=== PATIENT | male | born 1935 | race Caucasian/White ===

== ENCOUNTER → 2017-08-02 | Outpatient (CLI) | payer MEDICARE, OTHER ==
[~2017-08-02] MED LIST: ASCO-182 PO; ASCO-201 PO; ASP325 PO; CALC-797 PO; CHOL500016 PO; CIP500 PO; CYA1000 PO; CYAN50002 PO; DESO59LO TP; DESO60CR TP; FOL1 PO; GARL1TAB9 PO; GINK60TA6 PO; GLUC-139 PO; GLUC-234 PO; HYDR-385 PO; LISI5TAB25 PO; OMEG-11 PO; PNEU0.5D3 IM; SALM1CAP3 PO; SAW1CAPS3 PO; SAW1CAPS6 PO; SIM10 PO; SIMV-49 PO; SODCTAB PO; UBID400C2 PO; VIT-22 PO; VITA-200 PO; VITE400 PO; [UNRECOGNIZED DRUG - CODE] PO
--- NOTE | 2017-08-02 17:21 | RADIOLOGY IMAGING REPORT ---
FACILITY: [facility] [place] PATIENT NAME: Miguel Ángel Beckett : 1935 MR: [id number] V: [id number] EXAM DATE: ORDERING PHYSICIAN: BIANCA MOCK TECHNOLOGIST: Location: [facility] Patient: Miguel Ángel Beckett : 1935 Visit/Account:[id number] Date of Sevice: 08/02/2017 CHEST PA AND LAT HISTORY: Dyspnea. COMPARISON: 10/19/2013 FINDINGS: Frontal and lateral views chest obtained. Lines/tubes: None. Lungs/pleura: Normally inflated and clear. No evidence of congestive failure. No evidence of pneumot horax or effusion. Cardiomediastinum and aly: Atherosclerotic calcifications aortic arch. Sequela of transcatheter aort ic valve replacement. Bones/soft tissues: Lumbar fusion hardware, incompletely visualized. Mild T12 vertebral body compress ion fracture, unchanged. Mild pectus excavatum deformity. Additional findings: None. IMPRESSION: Chronic findings without evidence of an acute intrathoracic process or other significant interval demar nge. Report Dictated By: Damion Sahu MD at 08/02/2017 5:14 PM Report E-Signed By: Daimon Sahu MD at 08/02/2017 5:17 PM WSN:[id number]
--- NOTE | 2017-08-05 09:33 | RADIOLOGY IMAGING REPORT ---
FACILITY: [facility] PATIENT NAME: Miguel Ángel MAY : [id number] MR: [id number] V: [id number] EXAM DATE: ORDERING PHYSICIAN: BIANCA MOCK TECHNOLOGIST: Shanique Harmon EXAMINATION:TWO-DIMENSIONAL ECHOCARDIOGRAPH REASON:AORTIC VALVE REPLACEMENT WITH BOVINE VALVE 2016 2D Measurements (normal values in centimeters) LV endLV endRV endVent.LV PostAorticLeftPercent DiastolicSystolicDiastolicSeptumWallRootAtriumShortening (3.5-5.7)(0.9-2.6)(0.6-1.1)(0.6-1.1)(2.0-3.7)(1.9-4.0)(25-35%) [id number]% STROKE VOLUME: 44ml ESTIMATED EJECTION FRACTION:63% PARASTERNAL LONG AXIS: Overall left ventricular systolic function does appear to be normal. Right ventricle appears to be mildly enlarged. Other chamber sizes appear to be normal. Mild left ventricular thickening more along the posterior wall but no evidence for any outflow tract obstruction. Prosthetic aortic valve was in place. PARASTERNAL SHORT AXIS: Overall left ventricular function again appears to be normal. No specific wall motion abnormalities are noted. Aortic valve is a bioprosthetic valve. Trace of pulmonic insufficiency is noted. Some aortic insufficiency is also noted. APICAL FOUR AND TWO CHAMBER: Normal left ventricular ejection fraction. Aortic valve area is measured at 1.2cm2 with a mean pressure gradient across the valve of 12mm Hg & a dimensionless index of .7. Color examination of the aortic valve revealed a trace of aortic insufficiency present. Patient may be in atrial fibrillation. Mitral valve area was not able to be reliably calculated but it appears to open fairly normally. SUBCOSTAL VIEW: No pericardial effusion was noted. No atrioseptal or ventriculoseptal defects were appreciated. There is a trace amount of mitral insufficiency noted. The tricuspid regurgitation Vmax measured 1.59m/sec. The left atrial & right atrial volumes measure within normal ranges at 20ml/m2 respectively. The TAPSE is measured at 2.6 which is normal. No thrombi are noted in any of the chambers but the left atrial appendage is not seen. OVERALL IMPRESSION: 1. Normal left ventricular ejection fraction of 63%. The patient may be in atrial fibrillation. Diastolic function is not able to be reliably calculated. 2. Borderline concentric left ventricular thickening more along the posterior wall but no evidence for any outflow tract obstruction. 3. Mild right ventricular enlargement with the other chambers sizes being normal. 4. An aortic valve is a bioprosthetic valve. The valve area was measured at 1.2cm2 with a mean pressure gradient across the valve of 12mm Hg & a dimensionless index of .7 indicating mild aortic stenosis. There is a trace of aortic insufficiency noted. 5. A trace amount of mitral insufficiency present. 6. A trace amount of tricuspid & pulmonic insufficiency with normal right ventricular systolic pressures of 13mm Hg. Dictated by: Sabrina Villanueva M.D. on 08/03/2017 at 9:01 Transcribed by: HECTOR on 08/03/2017 at 10:09 Approved by: Sabrina Villanueva M.D. on 08/05/2017 at 9:32 [facility]
== END ==
LOC: US 03:05
PROVIDERS: ATTEND Internal Medicine Cardiovascular Disease
DX: I25.10 Atherosclerotic heart disease of native coronary artery without angina pectoris (principal); Z95.2 Presence of prosthetic heart valve; Z98.890 Other specified postprocedural states; I51.7 Cardiomegaly; I35.2 Nonrheumatic aortic (valve) stenosis with insufficiency; I34.0 Nonrheumatic mitral (valve) insufficiency; I07.1 Rheumatic tricuspid insufficiency; I37.1 Nonrheumatic pulmonary valve insufficiency
CPT/HCPCS: 36415; 71046; 82310; 82374; 82435; 82565; 82947; 83880; 84132; 84295; 84520; 85027; 93306

== ENCOUNTER 2017-09-14 11:32 | Inpatient (IN) | payer MEDICARE, OTHER ==
[~2017-09-14] VITALS: Ht 167.6 cm; Wt 60.3 kg
[~2017-09-14 11:32] MED LIST changes: -ATOR-1 PO; -CLOP75TA43 PO
[2017-09-14] MEDS ORDERED: LISI5TAB25 PO (11:39)
--- NOTE | 2017-09-14 11:42 | ER Report ---
History and Physical Time Seen By MD: 11:41 Hx. of Stated Complaint: reports confusion, weakness at home HPI/ROS CHIEF COMPLAINT: Headache, weakness, dizziness HISTORY OF PRESENT ILLNESS: 82-year-old male patient presents to the emergency room with complaint of headache, weakness and achiness. Patient states the symptoms started today. Patient states she's not had anything to eat at all today, however his had some Gatorade. Patient states that he is not had any fevers, chills, nausea, vomiting or diarrhea. His states he did have an episode of nausea earlier today, patient doesn't recall. Patient denies having any chest pain. He states that he did try to take some deep breaths earlier today, typically when he does that he was able to get his oxygen saturations up to 97%. Today he is unable to get his oxygen saturations up to 95%. Patient denies having any cough. REVIEW OF SYSTEMS: Respiratory: No cough, no dyspnea. Cardiovascular: No chest pain, no palpitations. Gastrointestinal: No vomiting, no abdominal pain. Musculoskeletal: No back pain. Allergies: Coded Allergies: codeine (Verified Allergy, Severe, CONSTIPATION, 09/14/17) morphine (Verified Allergy, Mild, Neurologic changes, headache, visual disturbances, 09/14/17) wheat (Verified Allergy, Unknown, Diarrhea, 09/14/17) Uncoded Allergies: SEASONAL ALLERGIES (Allergy, Intermediate, NASAL DRAINAGE, 12/08/11) Home Meds Active Scripts Desonide (DESONIDE) 59 Ml Lotion, 1 YELENA TP DAILY Y for ITCHING for 90 Days, #5 BOT 4 Refills 0.05% Prov:EFRAIN GARCIA MD 03/19/17 Simvastatin (SIMVASTATIN) 20 Mg Tablet, 1 TAB PO HS for 90 Days, #90 TAB 4 Refills Prov:EFRAIN GARCIA MD 03/19/17 Reported Medications Lisinopril (LISINOPRIL) 5 Mg Tablet, 5 MG PO QDAY, TAB 09/14/17 Vitamin E Acetate (VITAMIN E) 400 Unit Capsule, 1 CAP PO DAILY, CAPSULE 03/19/17 Ascorbic Acid (VITAMIN C) 500 Mg Tablet, 2 TAB PO DAILY, TAB 03/19/17 Sodium Chloride (SODIUM CHLORIDE) 1 Gm Tab, 1-2 GM PO DAILY, TAB 03/19/17 Saw [place]/Pyg/Zn/B6 (HM SAW PALMETTO COMPLEX SFTGEL) 1 Each Capsule, 1 EACH PO BID, CAPSULE 03/19/17 Saw [place] Xtr/Zinc Picolin (SAW [place]MET[place] CAPSULE) 1 Each Capsule, 2-3 CAP PO DAILY, CAPSULE 03/19/17 Rutin (RUTIN) Unknown Strength Tablet, 50 MG PO DAILY 03/19/17 Gluc Hcl/Csa/Davion Hy/Hyalur Ac (GLUCOSAMINE CHONDROITIN CAP) 1 Each Capsule, 1 EACH PO BID, CAPSULE 03/19/17 Ginkgo Biloba (GINKGO) Unknown Strength Tablet, 1 TAB PO DAILY 03/19/17 Garlic (GARLIC) 1 Each Tablet, 2 TAB PO BID 03/19/17 Mize-3 Fatty Acids/Fish Oil (FISH OIL 1,000 MG CAPSULE) 1 Each Capsule, 2 CAP PO DAILY, CAPSULE 03/19/17 Cyanocobalamin (Vitamin B-12) (VITAMIN B-12) 5,000 Mcg Tab.subl, 1 TAB PO BID 03/19/17 Ubidecarenone (CO Q-10) 400 Mg Capsule, 1 CAP PO DAILY, CAPSULE 03/19/17 Aspirin (Aspirin) 325 Mg Tab, 1 TAB PO DAILY 12/08/11 Discontinued Scripts Lisinopril (LISINOPRIL) 5 Mg Tablet, 1 TAB PO BID for 90 Days, #180 TAB 4 Refills Prov:EFRAIN GARCIA MD 03/19/17 Past Medical/Surgical History Patient has a past medical history of CVA, heart murmur, arthritis, finger fracture. Patient has surgical history of right shoulder surgery, total hip replacement, knee surgery, TURP, aortic valve replacement. Patient has a family medical history of cancer. Reviewed Nurses Notes: Yes Hx Smoking: No Smoking Status: Never Smoker Exposure to Second Hand Smoke?: No Hx Substance Use Disorder: No Hx Alcohol Use: No Constitutional Vital Sign - Last 24 Hours 09/14/17 09/14/17 09/14/17 09/14/17 11:40 11:42 11:47 11:52 Temp 97.5 Pulse 76 86 88 Resp 16 11 10 B/P (MAP) 146/92 146/92 (110) Pulse Ox 97 97 97 O2 Delivery Room Air 09/14/17 09/14/17 09/14/17 09/14/17 12:22 12:30 12:37 12:52 Pulse 80 73 84 Resp 12 11 15 B/P (MAP) 128/86 (100) Pulse Ox 96 95 96 09/14/17 09/14/17 09/14/17 09/14/17 13:16 13:27 13:30 13:42 Pulse 89 93 Resp 9 11 B/P (MAP) 151/98 (115) 154/92 (112) Pulse Ox 95 95 09/14/17 09/14/17 09/14/17 09/14/17 13:57 14:00 14:05 15:09 Pulse 90 86 Resp 12 11 B/P (MAP) 160/101 (120) 146/99 (115) Pulse Ox 97 97 09/14/17 09/14/17 09/14/17 15:14 15:19 15:24 Pulse 90 84 91 Pulse Ox 95 96 91 Physical Exam General Appearance: The patient is alert, has no immediate need for airway protection and no current signs of toxicity. Respiratory: Chest is non tender, lungs are clear to auscultation. Cardiac: regular rate and rhythm Gastrointestinal: Abdomen is soft and non tender, no masses, bowel sounds normal. Musculoskeletal: Neck: Neck is supple and non tender. Extremities have full range of motion and are non tender. Skin: No rashes or lesions. DIFFERENTIAL DIAGNOSIS: After history and physical exam differential diagnosis was considered for dizziness including but not limited to peripheral and central causes of vertigo, orthostatic causes including dehydration, and blood loss. Consider the differential is UTI, pneumonia. Medical Decision Making Data Points Result Diagram: 09/14/17 1144 09/14/17 1144 Laboratory Hematology Test 09/14/17 11:44 09/14/17 15:10 Red Blood Count 4.79 M/uL (4.00-5.60) Mean Corpuscular Volume 94.9 fL (80.0-96.0) Mean Corpuscular Hemoglobin 33.6 pg (26.0-33.0) Mean Corpuscular Hemoglobin Concent 35.5 g/dL (32.0-36.0) Red Cell Distribution Width 12.8 % (11.5-14.5) Mean Platelet Volume 8.6 fL (7.2-11.1) Neutrophils (%) (Auto) 64.4 % (39.4-72.5) Lymphocytes (%) (Auto) 20.4 % (17.6-49.6) Monocytes (%) (Auto) 12.2 % (4.1-12.4) Eosinophils (%) (Auto) 2.0 % (0.4-6.7) Basophils (%) (Auto) 1.0 % (0.3-1.4) Nucleated RBC Relative Count (auto) 0.1 /100WBC Neutrophils # (Auto) 4.2 K/uL (2.0-7.4) Lymphocytes # (Auto) 1.3 K/uL (1.3-3.6) Monocytes # (Auto) 0.8 K/uL (0.3-1.0) Eosinophils # (Auto) 0.1 K/uL (0.0-0.5) Basophils # (Auto) 0.1 K/uL (0.0-0.1) Nucleated RBC Absolute Count (auto) 0.01 K/uL Sodium Level 136 mmol/L (137-145) Potassium Level 3.9 mmol/L (3.5-5.0) Chloride Level 96 mmol/L (98-107) Carbon Dioxide Level 28 mmol/L (22-30) Blood Urea Nitrogen 17 mg/dl (9-21) Creatinine 1.00 mg/dl (0.66-1.25) Glomerular Filtration Rate Calc > 60.0 Random Glucose 113 mg/dl (75-110) Calcium Level 9.8 mg/dl (8.4-10.2) Total Bilirubin 0.8 mg/dl (0.2-1.3) Aspartate Amino Transf (AST/SGOT) 26 U/L (0-35) Alanine Aminotransferase (ALT/SGPT) 23 U/L (0-56) Alkaline Phosphatase 66 U/L (0-126) Troponin I < 0.012 ng/ml Total Protein 7.7 gm/dl (6.3-8.2) Albumin 4.2 g/dl (3.5-5.0) Urine Color Yellow Urine Clarity Clear Urine pH 8.0 pH (4.8-9.5) Urine Specific [place] 1.010 Urine Protein Negative mg/dL (NEGATIVE) Urine Glucose (UA) Negative mg/dL (NEGATIVE) Urine Ketones Negative mg/dL (NEGATIVE) Urine Blood Negative (NEGATIVE) Urine Nitrite Negative (NEGATIVE) Urine Bilirubin Negative (NEGATIVE) Urine Urobilinogen Negative mg/dL (0.2-1.9) Urine Leukocyte Esterase Trace (NEGATIVE) Urine RBC 1 /HPF (0-2/HPF) Urine WBC 5 /HPF (0-5/HPF) Urine Squamous Epithelial Cells Many /LPF (</=FEW) Urine Calcium Oxalate Crystals Few /HPF (NONE) Urine Bacteria Few /HPF (NONE-FEW) Urine Mucus None /HPF (NONE-FEW) Chemistry Test 09/14/17 11:44 09/14/17 15:10 White Blood Count 6.6 k/uL (4.5-11.0) Red Blood Count 4.79 M/uL (4.00-5.60) Hemoglobin 16.1 g/dL (14.0-18.0) Hematocrit 45.5 % (42.0-52.0) Mean Corpuscular Volume 94.9 fL (80.0-96.0) Mean Corpuscular Hemoglobin 33.6 pg (26.0-33.0) Mean Corpuscular Hemoglobin Concent 35.5 g/dL (32.0-36.0) Red Cell Distribution Width 12.8 % (11.5-14.5) Platelet Count 112 K/uL (150-450) Mean Platelet Volume 8.6 fL (7.2-11.1) Neutrophils (%) (Auto) 64.4 % (39.4-72.5) Lymphocytes (%) (Auto) 20.4 % (17.6-49.6) Monocytes (%) (Auto) 12.2 % (4.1-12.4) Eosinophils (%) (Auto) 2.0 % (0.4-6.7) Basophils (%) (Auto) 1.0 % (0.3-1.4) Nucleated RBC Relative Count (auto) 0.1 /100WBC Neutrophils # (Auto) 4.2 K/uL (2.0-7.4) Lymphocytes # (Auto) 1.3 K/uL (1.3-3.6) Monocytes # (Auto) 0.8 K/uL (0.3-1.0) Eosinophils # (Auto) 0.1 K/uL (0.0-0.5) Basophils # (Auto) 0.1 K/uL (0.0-0.1) Nucleated RBC Absolute Count (auto) 0.01 K/uL Glomerular Filtration Rate Calc > 60.0 Calcium Level 9.8 mg/dl (8.4-10.2) Total Bilirubin 0.8 mg/dl (0.2-1.3) Aspartate Amino Transf (AST/SGOT) 26 U/L (0-35) Alanine Aminotransferase (ALT/SGPT) 23 U/L (0-56) Alkaline Phosphatase 66 U/L (0-126) Troponin I < 0.012 ng/ml Total Protein 7.7 gm/dl (6.3-8.2) Albumin 4.2 g/dl (3.5-5.0) Urine Color Yellow Urine Clarity Clear Urine pH 8.0 pH (4.8-9.5) Urine Specific [place] 1.010 Urine Protein Negative mg/dL (NEGATIVE) Urine Glucose (UA) Negative mg/dL (NEGATIVE) Urine Ketones Negative mg/dL (NEGATIVE) Urine Blood Negative (NEGATIVE) Urine Nitrite Negative (NEGATIVE) Urine Bilirubin Negative (NEGATIVE) Urine Urobilinogen Negative mg/dL (0.2-1.9) Urine Leukocyte Esterase Trace (NEGATIVE) Urine RBC 1 /HPF (0-2/HPF) Urine WBC 5 /HPF (0-5/HPF) Urine Squamous Epithelial Cells Many /LPF (</=FEW) Urine Calcium Oxalate Crystals Few /HPF (NONE) Urine Bacteria Few /HPF (NONE-FEW) Urine Mucus None /HPF (NONE-FEW) Urinalysis Test 09/14/17 15:10 Urine Color Yellow Urine Clarity Clear Urine pH 8.0 pH (4.8-9.5) Urine Specific [place] 1.010 Urine Protein Negative mg/dL (NEGATIVE) Urine Glucose (UA) Negative mg/dL (NEGATIVE) Urine Ketones Negative mg/dL (NEGATIVE) Urine Blood Negative (NEGATIVE) Urine Nitrite Negative (NEGATIVE) Urine Bilirubin Negative (NEGATIVE) Urine Urobilinogen Negative mg/dL (0.2-1.9) Urine Leukocyte Esterase Trace (NEGATIVE) Urine RBC 1 /HPF (0-2/HPF) Urine WBC 5 /HPF (0-5/HPF) Urine Squamous Epithelial Cells Many /LPF (</=FEW) Urine Calcium Oxalate Crystals Few /HPF (NONE) Urine Bacteria Few /HPF (NONE-FEW) Urine Mucus None /HPF (NONE-FEW) EKG/Imaging EKG Interpretation 12 lead EKG: Rhythm: normal sinus rhythm [place]: normal QRS: normal ST segments: normal Imaging EXAMINATION: MR brain without IV contrast HISTORY: Stroke. COMPARISON: CT head without contrast 09/14/2017 TECHNIQUE: Multi-planar, multi-sequence brain MRI was performed without IV contrast administration. FINDINGS: Brain volume: Mild age-appropriate parenchymal volume loss. Sagittal midline structures: Normal. Ventricles: Normal. Acute ischemic changes: Positive exam for acute infarct. There is abnormal restricted diffusion along the cortex of the anterior right temporal lobe and along the posterior insular cortex, with additional foci of restricted diffusion in the white matter along the posterior right frontal lobe and right parietal lobe and extending into the right temporal lobe. Hemorrhage: None. Masses / edema: None. Vazquez-white: There is some associated increased T2/FLAIR signal along the right temporal lobe and right insula. White matter lesions: Additional scattered T2/FLAIR hyperintensity in the deep white matter bilaterally, compatible with chronic small vessel ischemic change. Extra-axial: None. Calvarium / scalp: Negative. Skull base: Negative. Visualized sinuses / orbits: Negative. Visualized upper neck: Negative. IMPRESSION: 1. Positive exam for acute infarct in the right MCA territory, with abnormal restricted diffusion in the anterior right temporal lobe and posterior right insula, with additional involvement in the white matter along the posterior right frontal lobe and right parietal lobe, extending into the right temporal lobe. 2. Mild age-appropriate parenchymal volume loss, with chronic small vessel ischemic change. Findings were discussed with SYL IBRAHIM at 09/14/2017 2:59 PM. Report Dictated By: Llu Samuel MD at 09/14/2017 2:52 PM Report E-Signed By: Lul Samuel MD at 09/14/2017 3:03 PM Exam type: CHEST PA AND LAT History: weakness, headache, diziness Comparison: August 02, 2017. Findings: The lungs are free of acute effusions, infiltrates or edema. There is no evidence of a pneumothorax or pneumomediastinum. Cardiac silhouette is normal in size. Again noted is prosthetic aortic valve. Incompletely imaged are postsurgical changes of the upper lumbar spine. Mild compression deformity of T12 remains relatively unchanged. Is a pectus excavatum deformity the anterior chest wall IMPRESSION: 1. No acute cardiopulmonary process is seen Report Dictated By: Chikis Calvin MD at 09/14/2017 2:14 PM Report E-Signed By: Chikis Calvin MD at 09/14/2017 2:16 PM EXAMINATION: CT HEAD WITHOUT CONTRAST COMPARISON: None available HISTORY: Weakness. Headache. Dizziness. PROCEDURE: Noncontrast CT from the vertex through the skull base. One of the following dose optimization techniques was utilized in the performance of this exam: Automated exposure control; adjustment of the mA and/or kV according to the patient's size; or use of an iterative reconstruction technique. Specific details can be referenced in the facility's radiology CT exam operational policy. FINDINGS: Brain volume: Age-appropriate. Hemorrhage/extra-axial fluid: None. Mass effect/midline shift/edema: None. Ischemia: Focal region of anterior temporal lobe decreased attenuation and loss of vazquez-white differentiation. Ventricles and basal cisterns: Within normal limits. Posterior fossa: Negative. Vessels: Carotid atherosclerosis. Focal hyperdensity in the region of a right MCA M2 segment. Calvarium, skull base, and scalp: Negative. Visualized sinuses and orbits: Within normal limits. IMPRESSION: 1. No intracranial hemorrhage or mass effect. 2. Focal loss of vazquez-white differentiation along the anterior right temporal lobe is suspicious for ischemia. Consider further characterization by MRI as clinically indicated. 3. Focal increased density of a right M2 branch in a distribution matching the region of presumed ischemia. The appearance is suggestive of focal thrombosis and consider further characterization by CTA. Results were discussed with SYL IBRAHIM at 09/14/2017 1:07 PM. Report Dictated By: Norm Helms MD at 09/14/2017 1:01 PM Report E-Signed By: Norm Helms MD at 09/14/2017 1:09 PM ED Course/Re-evaluation ED Course Patient was admitted to the exam room, history and physical were obtained. Differential diagnoses were considered. On examination patient did have some difficulty following instruction, he was unable to do the [id number] test bilaterally. Patient was unable to grasp both hands, although when he did he had equal strength, at the same time. Cranial nerves II through XII grossly intact. A CT scan of the head was done, a CBC, CMP, urinalysis, chest x-ray. The lab results were unremarkable, the chest x-ray was negative. The CT of the head show the patient does have an acute infarct in the right temporal lobe. I discussed the case with Dr. Lisseth Kaye, she felt that we should probably get an MRI of the brain. That was done and showed that he does have an acute infarct , which the radiologist stated was hours to days old. I discussed the results with Dr. Lisseth Kaye who agreed to accept the patient for admission. Decision to Disposition Date: September 14, 2017 Decision to Disposition Time: 15:21 Depart Departure Latest Vital Signs Vital Signs Date Time Temp Pulse Resp B/P (MAP) Pulse Ox O2 Delivery O2 Flow Rate FiO2 09/14/17 15:24 91 91 09/14/17 15:09 146/99 (115) 09/14/17 14:05 11 09/14/17 11:40 97.5 Room Air Impression: Primary Impression: CVA (cerebral infarction) Condition: Condition Unchanged Disposition: Admitted from ER Referrals: EFRAIN GARCIA MD (PCP) SYL IBRAHIM September 14, 2017 11:42
[2017-09-14 12:02] LABS: PLATELET COUNT, AUTOMATED 112 K/uL (150-450)
--- NOTE | 2017-09-14 12:17 | EKG ---
FACILITY: [facility] [place] PATIENT NAME: Miguel Ángel MAY : [id number] MR: [id number] V: [id number] EXAM DATE: ORDERING PHYSICIAN: SYL IBRAHIM TECHNOLOGIST: Juan Shen Reason : Blood Pressure : / mmHG Vent. Rate : 085 BPM Atrial Rate : 085 BPM P-R Int : 156 ms QRS Dur : 086 ms QT Int : 384 ms P-R-T Axes : 058 -12 042 degrees QTc Int : 456 ms Normal sinus rhythm Possible Left atrial enlargement Borderline ECG When compared with ECG of 19-OCT-2013 14:34, No significant change was found Confirmed by YONAS SAUCEDO ([id number]) on 09/15/2017 6:39:44 AM Referred By: Confirmed By:YONAS SAUCEDO
--- NOTE | 2017-09-14 13:14 | RADIOLOGY IMAGING REPORT ---
FACILITY: [facility] - [place] PATIENT NAME: Miguel Ángel Beckett : 1935 MR: [id number] V: [id number] EXAM DATE: ORDERING PHYSICIAN: SYL IBRAHIM TECHNOLOGIST: Location: [facility] [place] Patient: Miguel Ángel Beckett : 1935 Visit/Account:[id number] Date of Sevice: 09/14/2017 EXAMINATION: CT HEAD WITHOUT CONTRAST COMPARISON: None available HISTORY: Weakness. Headache. Dizziness. PROCEDURE: Noncontrast CT from the vertex through the skull base. One of the following dose optimizat ion techniques was utilized in the performance of this exam: Automated exposure control; adjustment o f the mA and/or kV according to the patient's size; or use of an iterative reconstruction technique. Specific details can be referenced in the facility's radiology CT exam operational policy. FINDINGS: Brain volume: Age-appropriate. Hemorrhage/extra-axial fluid: None. Mass effect/midline shift/edema: None. Ischemia: Focal region of anterior temporal lobe decreased attenuation and loss of garcia-white differe ntiation. Ventricles and basal cisterns: Within normal limits. Posterior fossa: Negative. Vessels: Carotid atherosclerosis. Focal hyperdensity in the region of a right MCA M2 segment. Calvarium, skull base, and scalp: Negative. Visualized sinuses and orbits: Within normal limits. IMPRESSION: 1. No intracranial hemorrhage or mass effect. 2. Focal loss of garcia-white differentiation along the anterior right temporal lobe is suspicious for ischemia. Consider further characterization by MRI as clinically indicated. 3. Focal increased density of a right M2 branch in a distribution matching the region of presumed isc hemia. The appearance is suggestive of focal thrombosis and consider further characterization by CTA. Results were discussed with SYL IBRAHIM at 09/14/2017 1:07 PM. Report Dictated By: Norm Helms MD at 09/14/2017 1:01 PM Report E-Signed By: Norm Helms MD at 09/14/2017 1:09 PM WSN:[id number]
--- NOTE | 2017-09-14 14:20 | RADIOLOGY IMAGING REPORT ---
FACILITY: [facility] - [place] PATIENT NAME: Miguel Ángel Beckett : 1935 MR: [id number] V: [id number] EXAM DATE: ORDERING PHYSICIAN: SYL IBRAHIM TECHNOLOGIST: [place] [facility] [place] Miguel Ángel Beckett : 1935 Visit/Account:[id number] Date of Sevice: 09/14/2017 Exam type: CHEST PA AND LAT History: weakness, headache, diziness Comparison: August 02, 2017. Findings: The lungs are free of acute effusions, infiltrates or edema. There is no evidence of a pneumothorax or pneumomediastinum. Cardiac silhouette is normal in size. Again noted is prosthetic aortic valve. Incompletely imaged are postsurgical changes of the upper lumbar spine. Mild compression deformity of T12 remains relatively unchanged. Is a pectus excavatum deformity the anterior chest wall IMPRESSION: 1. No acute cardiopulmonary process is seen Report Dictated By: Chikis Calvin MD at 09/14/2017 2:14 PM Report E-Signed By: Chikis Calvin MD at 09/14/2017 2:16 PM WSN:[id number]
[2017-09-14] MEDS ORDERED: ASPIRIN 81 MG ENTERIC COATED PO ONE (15:05)
--- NOTE | 2017-09-14 15:07 | RADIOLOGY IMAGING REPORT ---
FACILITY: [facility] PATIENT NAME: Miguel Ángel Beckett : 1935 MR: [id number] V: [id number] EXAM DATE: ORDERING PHYSICIAN: SYL IBRAHIM TECHNOLOGIST: Location[place] [facility] [place] Patient: Miguel Ángel Beckett : 1935 Visit/Account:[id number] Date of Sevice: 09/14/2017 EXAMINATION: MR brain without IV contrast HISTORY: Stroke. COMPARISON: CT head without contrast 09/14/2017 TECHNIQUE: Multi-planar, multi-sequence brain MRI was performed without IV contrast administration. FINDINGS: Brain volume: Mild age-appropriate parenchymal volume loss. Sagittal midline structures: Normal. Ventricles: Normal. Acute ischemic changes: Positive exam for acute infarct. There is abnormal restricted diffusion komal g the cortex of the anterior right temporal lobe and along the posterior insular cortex, with additio nal foci of restricted diffusion in the white matter along the posterior right frontal lobe and right parietal lobe and extending into the right temporal lobe. Hemorrhage: None. Masses / edema: None. Vazquez-white: There is some associated increased T2/FLAIR signal along the right temporal lobe and righ t insula. White matter lesions: Additional scattered T2/FLAIR hyperintensity in the deep white matter bilatera lly, compatible with chronic small vessel ischemic change. Extra-axial: None. Calvarium / scalp: Negative. Skull base: Negative. Visualized sinuses / orbits: Negative. Visualized upper neck: Negative. IMPRESSION: 1. Positive exam for acute infarct in the right MCA territory, with abnormal restricted diffusion in the anterior right temporal lobe and posterior right insula, with additional involvement in the white matter along the posterior right frontal lobe and right parietal lobe, extending into the right temp oral lobe. 2. Mild age-appropriate parenchymal volume loss, with chronic small vessel ischemic change. Findings were discussed with SYL IBRAHIM at 09/14/2017 2:59 PM. Report Dictated By: Lul Samuel MD at 09/14/2017 2:52 PM Report E-Signed By: Lul Samuel MD at 09/14/2017 3:03 PM WSN:[id number]
[2017-09-14 16:05] VITALS: BP 163/93
--- NOTE | 2017-09-14 17:46 | History & Physical ---
History of Present Illness Chief Complaint Confusion History of Present Illness The patient is an 82 year old male with PMH significant for CVA, HTN, hyperlipidemia and hx of porcine valve replacement in 2016, who was in his usual state of health yesterday. He drove home from [place] with no problem. Per the patient's , he did not sleep well. He woke up early this am and was frustrated that he could not work his iPad. He went back to bed. When he got up again, his noticed that he was confused. She brought him to [facility] ER for evaluation. MRI showed an acute infarct in the right MCA territory, with abnormal restricted diffusion in the anterior right temporal lobe and posterior right insula, with additional involvement in the white matter along the posterior right frontal lobe and right parietal lobe, extending into the right temporal lobe. The [facility] stroke team was consulted and felt the patient would benefit from the specialized work up and rehabilitation offered at their facility. History Problems: (1) History of heart valve replacement (2) DJD (degenerative joint disease) (3) Mitral valve prolapse (4) HTN (hypertension) (5) Hyperlipidemia (6) Aortic stenosis (7) CVA (cerebral infarction) Status: Resolved (8) History of total hip replacement (9) H/O hernia repair (10) History of lumbar laminectomy Home Meds Active Scripts Desonide (DESONIDE) 59 Ml Lotion, 1 YELENA TP DAILY Y for ITCHING for 90 Days, #5 BOT 4 Refills 0.05% Prov:EFRAIN GARCIA MD 03/19/17 Simvastatin (SIMVASTATIN) 20 Mg Tablet, 1 TAB PO HS for 90 Days, #90 TAB 4 Refills Prov:EFRAIN GARCIA MD 03/19/17 Reported Medications Lisinopril (LISINOPRIL) 5 Mg Tablet, 5 MG PO QDAY, TAB 09/14/17 Vitamin E Acetate (VITAMIN E) 400 Unit Capsule, 1 CAP PO DAILY, CAPSULE 03/19/17 Ascorbic Acid (VITAMIN C) 500 Mg Tablet, 2 TAB PO DAILY, TAB 03/19/17 Saw [place]/Pumpkin/Pyg/Zn/B6 (HM SAW PALMETTO COMPLEX SFTGEL) 1 Each Capsule, 1 EACH PO BID, CAPSULE 03/19/17 Saw [place] Xtr/Zinc Picolin (SAW PALMETTO CAPSULE) 1 Each Capsule, 2-3 CAP PO DAILY, CAPSULE 03/19/17 Rutin (RUTIN) Unknown Strength Tablet, 50 MG PO DAILY 03/19/17 Gluc Hcl/Csa/Davion Hy/Hyalur Ac (GLUCOSAMINE CHONDROITIN CAP) 1 Each Capsule, 1 EACH PO BID, CAPSULE 03/19/17 Ginkgo Biloba (GINKGO) Unknown Strength Tablet, 1 TAB PO DAILY 03/19/17 Garlic (GARLIC) 1 Each Tablet, 2 TAB PO BID 03/19/17 [place]-3 Fatty Acids/Fish Oil (FISH OIL 1,000 MG CAPSULE) 1 Each Capsule, 2 CAP PO DAILY, CAPSULE 03/19/17 Cyanocobalamin (Vitamin B-12) (VITAMIN B-12) 5,000 Mcg Tab.subl, 1 TAB PO BID 03/19/17 Ubidecarenone (CO Q-10) 400 Mg Capsule, 1 CAP PO DAILY, CAPSULE 03/19/17 Aspirin (Aspirin) 325 Mg Tab, 1 TAB PO DAILY 12/08/11 Discontinued Reported Medications Sodium Chloride (SODIUM CHLORIDE) 1 Gm Tab, 1-2 GM PO DAILY, TAB 03/19/17 Discontinued Scripts Lisinopril (LISINOPRIL) 5 Mg Tablet, 1 TAB PO BID for 90 Days, #180 TAB 4 Refills Prov:EFRAIN GARCIA MD 03/19/17 Allergies: Coded Allergies: codeine (Verified Allergy, Severe, CONSTIPATION, 09/14/17) morphine (Verified Allergy, Mild, Neurologic changes, headache, visual disturbances, 09/14/17) wheat (Verified Allergy, Unknown, Diarrhea, 09/14/17) Uncoded Allergies: SEASONAL ALLERGIES (Allergy, Intermediate, NASAL DRAINAGE, 12/08/11) Other Social/Family Hx The patient is (58 years) and lives in [place] with his for most of the year. He escalera in [place]. 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 Hx Smoking: No Smoking Status: Never Smoker Exposure to Second Hand Smoke?: No Hx Alcohol Use: No Hx Substance Use Disorder: No Social Drug Use: Never History of IV Drug Use: No Review of Systems Constitutional: No Fever Neurological: Confusion, No Weakness Eyes: No Loss of Vision ENT: No Hearing Loss Respiratory: No Shortness of Breath, No Cough Gastrointestinal: No Nausea, No Vomiting Genitourinary: No Dysuria Psychiatric: No Depression Exam Vital Signs Vital Signs Date Time Temp Pulse Resp B/P (MAP) Pulse Ox O2 Delivery O2 Flow Rate FiO2 09/14/17 16:15 96 09/14/17 16:05 97.5 85 16 163/93 (116) Room Air General Appearance: Alert, Awake, No Acute Distress, Afebrile Neuro: Other (Some confusion. Able to follow commands for me. Strength full and equal all 4 extremities.) Eyes: PERRLA ENT: Moist Mucous Membranes Cardiovascular: Regular Rate and Rhythm, No Edema Respiratory: No Respiratory Distress, Clear to Auscultation GI: Abd Soft and Non-Tender Extremities: Warm, Perfused Integumentary: Skin Intact without Lesion / Mass Psych: Appropriate Mood & Affect Medical Decision Making Data Points Result Diagram: 09/14/17 1144 09/14/17 1144 Item Value Date Time Calcium Level 9.8 mg/dl 09/14/17 1144 Total Bilirubin 0.8 mg/dl 09/14/17 1144 Aspartate Amino Transf (AST/SGOT) 26 U/L 09/14/17 1144 Alanine Aminotransferase (ALT/SGPT) 23 U/L 09/14/17 1144 Alkaline Phosphatase 66 U/L 09/14/17 1144 Troponin I < 0.012 ng/ml 09/14/17 1144 Total Protein 7.7 gm/dl 09/14/17 1144 Albumin 4.2 g/dl 09/14/17 1144 Urine Color Yellow 09/14/17 1510 Urine Clarity Clear 09/14/17 1510 Urine pH 8.0 pH 09/14/17 1510 Urine Specific Etta 1.010 09/14/17 1510 Urine Protein Negative mg/dL 09/14/17 1510 Urine Glucose (UA) Negative mg/dL 09/14/17 1510 Urine Ketones Negative mg/dL 09/14/17 1510 Urine Blood Negative 09/14/17 1510 Urine Nitrite Negative 09/14/17 1510 Urine Bilirubin Negative 09/14/17 1510 Urine Urobilinogen Negative mg/dL 09/14/17 1510 Urine Leukocyte Esterase Trace H 09/14/17 1510 Urine RBC 1 /HPF 09/14/17 1510 Urine WBC 5 /HPF 09/14/17 1510 Urine Squamous Epithelial Cells Many /LPF H 09/14/17 1510 Urine Calcium Oxalate Crystals Few /HPF H 09/14/17 1510 Urine Bacteria Few /HPF 09/14/17 1510 Urine Mucus None /HPF 09/14/17 1510 EKG / Imaging EKG Interpretation FACILITY: [facility] PATIENT NAME: Miguel Ángel BECKETT : [id number] MR: [id number] V: [id number] EXAM DATE: ORDERING PHYSICIAN: SYL IBRAHIM TECHNOLOGIST: Juan Test Reason : Blood Pressure : / mmHG Vent. Rate : 085 BPM Atrial Rate : 085 BPM P-R Int : 156 ms QRS Dur : 086 ms QT Int : 384 ms P-R-T Axes : 058 -12 042 degrees QTc Int : 456 ms Normal sinus rhythm Possible Left atrial enlargement Borderline ECG When compared with ECG of 19-OCT-2013 14:34, No significant change was found Referred By: Confirmed By: 1140 T: / Imaging FACILITY: [facility] PATIENT NAME: Miguel Ángel Beckett : 1935 MR: [id number] V: [id number] EXAM DATE: ORDERING PHYSICIAN: SYL IBRAHIM TECHNOLOGIST: Location: [facility] [place] Patient: Miguel Ángel Beckett : 1935 Visit/Account:[id number] Date of ice: 09/14/2017 EXAMINATION: CT HEAD WITHOUT CONTRAST COMPARISON: None available HISTORY: Weakness. Headache. Dizziness. PROCEDURE: Noncontrast CT from the vertex through the skull base. One of the following dose optimization techniques was utilized in the performance of this exam: Automated exposure control; adjustment of the mA and/or kV according to the patient's size; or use of an iterative reconstruction technique. Specific details can be referenced in the facility's radiology CT exam operational policy. FINDINGS: Brain volume: Age-appropriate. Hemorrhage/extra-axial fluid: None. Mass effect/midline shift/edema: None. Ischemia: Focal region of anterior temporal lobe decreased attenuation and loss of vazquez-white differentiation. Ventricles and basal cisterns: Within normal limits. Posterior fossa: Negative. Vessels: Carotid atherosclerosis. Focal hyperdensity in the region of a right MCA M2 segment. Calvarium, skull base, and scalp: Negative. Visualized sinuses and orbits: Within normal limits. IMPRESSION: 1. No intracranial hemorrhage or mass effect. 2. Focal loss of vazquez-white differentiation along the anterior right temporal lobe is suspicious for ischemia. Consider further characterization by MRI as clinically indicated. 3. Focal increased density of a right M2 branch in a distribution matching the region of presumed ischemia. The appearance is suggestive of focal thrombosis and consider further characterization by CTA. Results were discussed with SYL IBRAHIM at 09/14/2017 1:07 PM. Report Dictated By: Norm Helms MD at 09/14/2017 1:01 PM Report E-Signed By: Norm Helms MD at 09/14/2017 1:09 PM WSN:[id number] FACILITY: [facility] PATIENT NAME: Miguel Ángel Beckett : 1935 MR: [id number] V: [id number] EXAM DATE: ORDERING PHYSICIAN: SYL IBRAHIM TECHNOLOGIST: Location: [facility] [place] Patient: Miguel Ángel Beckett : 1935 Visit/Account:[id number] Date of Sevice: 09/14/2017 Exam type: CHEST PA AND LAT History: weakness, headache, diziness Comparison: August 02, 2017. Findings: The lungs are free of acute effusions, infiltrates or edema. There is no evidence of a pneumothorax or pneumomediastinum. Cardiac silhouette is normal in size. Again noted is prosthetic aortic valve. Incompletely imaged are postsurgical changes of the upper lumbar spine. Mild compression deformity of T12 remains relatively unchanged. Is a pectus excavatum deformity the anterior chest wall IMPRESSION: 1. No acute cardiopulmonary process is seen Report Dictated By: Chikis Calvin MD at 09/14/2017 2:14 PM Report E-Signed By: Chikis Calvin MD at 09/14/2017 2:16 PM WSN:[id number] FACILITY: [facility] PATIENT NAME: Miguel Ángel Beckett : 1935 MR: [id number] V: [id number] EXAM DATE: [id number] ORDERING PHYSICIAN: SYL IBRAHIM TECHNOLOGIST: Location: [facility] [place] Patient: Miguel Ángel Beckett : 1935 Visit/Account:[id number] Date of Sevsaleem: 09/14/2017 EXAMINATION: MR brain without IV contrast HISTORY: Stroke. COMPARISON: CT head without contrast 09/14/2017 TECHNIQUE: Multi-planar, multi-sequence brain MRI was performed without IV contrast administration. FINDINGS: Brain volume: Mild age-appropriate parenchymal volume loss. Sagittal midline structures: Normal. Ventricles: Normal. Acute ischemic changes: Positive exam for acute infarct. There is abnormal restricted diffusion along the cortex of the anterior right temporal lobe and along the posterior insular cortex, with additional foci of restricted diffusion in the white matter along the posterior right frontal lobe and right parietal lobe and extending into the right temporal lobe. Hemorrhage: None. Masses / edema: None. Vazquez-white: There is some associated increased T2/FLAIR signal along the right temporal lobe and right insula. White matter lesions: Additional scattered T2/FLAIR hyperintensity in the deep white matter bilaterally, compatible with chronic small vessel ischemic change. Extra-axial: None. Calvarium / scalp: Negative. Skull base: Negative. Visualized sinuses / orbits: Negative. Visualized upper neck: Negative. IMPRESSION: 1. Positive exam for acute infarct in the right MCA territory, with abnormal restricted diffusion in the anterior right temporal lobe and posterior right insula, with additional involvement in the white matter along the posterior right frontal lobe and right parietal lobe, extending into the right temporal lobe. 2. Mild age-appropriate parenchymal volume loss, with chronic small vessel ischemic change. Findings were discussed with SYL IBRAHIM at 09/14/2017 2:59 PM. Report Dictated By: Lul Samuel MD at 09/14/2017 2:52 PM Report E-Signed By: Lul Samuel MD at 09/14/2017 3:03 PM WSN:[id number] Pre-Admit Course Medical Record Review: Yes Assessment and Plan Problems: (1) CVA (cerebral infarction) Status: Resolved Assessment & Plan: MRI shows acute infarct in the right MCA territory, with abnormal restricted diffusion in the anterior right temporal lobe and posterior right insula, with additional involvement in the white matter along the posterior right frontal lobe and right parietal lobe, extending into the right temporal lobe. Will transfer the patient to [facility] to the stroke team. The hospitalist at [facility] has accepted the patient in transfer. Neurology will then consult on the patient. The family is in agreement with this plan. Time Spent on Plan of Care: < 30 min Venous Thromboembolism Antithrombotics Is Pt On Any Antithrombotics?: No Exam Sepsis Risk: No Definite Risk YONAS DUNLAP MD September 14, 2017 17:46
--- NOTE | 2017-09-14 17:53 | Hospitalist Depart ---
Discharge Summary Reason for Hosp/Final Diag: (1) CVA (cerebral infarction) Status: Resolved Hospital Course & Plan: MRI shows acute infarct in the right MCA territory, with abnormal restricted diffusion in the anterior right temporal lobe and posterior right insula, with additional involvement in the white matter along the posterior right frontal lobe and right parietal lobe, extending into the right temporal lobe. Will transfer the patient to [facility] to the stroke team. The hospitalist at [facility] has accepted the patient in transfer. Neurology will then consult on the patient. The family is in agreement with this plan. Departure Weight (Pounds): 133 Result Diagram: 09/14/17 1144 09/14/17 1144 Item Value Date Time Calcium Level 9.8 mg/dl 09/14/17 1144 Total Bilirubin 0.8 mg/dl 09/14/17 1144 Aspartate Amino Transf (AST/SGOT) 26 U/L 09/14/17 1144 Alanine Aminotransferase (ALT/SGPT) 23 U/L 09/14/17 1144 Alkaline Phosphatase 66 U/L 09/14/17 1144 Troponin I < 0.012 ng/ml 09/14/17 1144 Total Protein 7.7 gm/dl 09/14/17 1144 Albumin 4.2 g/dl 09/14/17 1144 Urine Color Yellow 09/14/17 1510 Urine Clarity Clear 09/14/17 1510 Urine pH 8.0 pH 09/14/17 1510 Urine Specific [place] 1.010 09/14/17 1510 Urine Protein Negative mg/dL 09/14/17 1510 Urine Glucose (UA) Negative mg/dL 09/14/17 1510 Urine Ketones Negative mg/dL 09/14/17 1510 Urine Blood Negative 09/14/17 1510 Urine Nitrite Negative 09/14/17 1510 Urine Bilirubin Negative 09/14/17 1510 Urine Urobilinogen Negative mg/dL 09/14/17 1510 Urine Leukocyte Esterase Trace H 09/14/17 1510 Urine RBC 1 /HPF 09/14/17 1510 Urine WBC 5 /HPF 09/14/17 1510 Urine Squamous Epithelial Cells Many /LPF H 09/14/17 1510 Urine Calcium Oxalate Crystals Few /HPF H 09/14/17 1510 Urine Bacteria Few /HPF 09/14/17 1510 Urine Mucus None /HPF 09/14/17 1510 Imaging FACILITY: [facility] PATIENT NAME: Miguel Ángel Beckett : 1935 MR: [id number] V: [id number] EXAM DATE: ORDERING PHYSICIAN: SYL IBRAHIM [place]CHNOLOGIST: [place] [facility] [place]ngel Beckett : 1935 Visit/Account:[id number] Date of Sevice: 09/14/2017 EXAMINATION: MR brain without IV contrast HISTORY: Stroke. COMPARISON: CT head without contrast 09/14/2017 TECHNIQUE: Multi-planar, multi-sequence brain MRI was performed without IV contrast administration. FINDINGS: Brain volume: Mild age-appropriate parenchymal volume loss. Sagittal midline structures: Normal. Ventricles: Normal. Acute ischemic changes: Positive exam for acute infarct. There is abnormal restricted diffusion along the cortex of the anterior right temporal lobe and along the posterior insular cortex, with additional foci of restricted diffusion in the white matter along the posterior right frontal lobe and right parietal lobe and extending into the right temporal lobe. Hemorrhage: None. Masses / edema: None. Vazquez-white: There is some associated increased T2/FLAIR signal along the right temporal lobe and right insula. White matter lesions: Additional scattered T2/FLAIR hyperintensity in the deep white matter bilaterally, compatible with chronic small vessel ischemic change. Extra-axial: None. Calvarium / scalp: Negative. Skull base: Negative. Visualized sinuses / orbits: Negative. Visualized upper neck: Negative. IMPRESSION: 1. Positive exam for acute infarct in the right MCA territory, with abnormal restricted diffusion in the anterior right temporal lobe and posterior right insula, with additional involvement in the white matter along the posterior right frontal lobe and right parietal lobe, extending into the right temporal lobe. 2. Mild age-appropriate parenchymal volume loss, with chronic small vessel ischemic change. Findings were discussed with SYL IBRAHIM at 09/14/2017 2:59 PM. Report Dictated By: Lul Samuel MD at 09/14/2017 2:52 PM Report E-Signed By: Lul Samuel MD at 09/14/2017 3:03 PM WSN:[id number] EKG FACILITY: [facility] PATIENT NAME: Miguel Ángel BECKETT : [id number] MR: [id number] V: [id number] EXAM DATE: ORDERING PHYSICIAN: SYL IBRAHIM TECHNOLOGIST: Juan Test Reason : Blood Pressure : / mmHG Vent. Rate : 085 BPM Atrial Rate : 085 BPM P-R Int : 156 ms QRS Dur : 086 ms QT Int : 384 ms P-R-T Axes : 058 -12 042 degrees QTc Int : 456 ms Normal sinus rhythm Possible Left atrial enlargement Borderline ECG When compared with ECG of 19-OCT-2013 14:34, No significant change was found Referred By: Confirmed By: 1140 T: / Condition: No Change Discharge: Other Facility Time Spent: < 30 min Discharge Instructions Home Meds Active Scripts Desonide (DESONIDE) 59 Ml Lotion, 1 YELENA TP DAILY Y for ITCHING for 90 Days, #5 BOT 4 Refills 0.05% Prov:EFRAIN GARCIA MD 03/19/17 Simvastatin (SIMVASTATIN) 20 Mg Tablet, 1 TAB PO HS for 90 Days, #90 TAB 4 Refills Prov:EFRAIN GARCIA MD 03/19/17 Reported Medications Lisinopril (LISINOPRIL) 5 Mg Tablet, 5 MG PO QDAY, TAB 09/14/17 Vitamin E Acetate (VITAMIN E) 400 Unit Capsule, 1 CAP PO DAILY, CAPSULE 03/19/17 Ascorbic Acid (VITAMIN C) 500 Mg Tablet, 2 TAB PO DAILY, TAB 03/19/17 Saw [place]/Pumpkin/Pyg/Zn/B6 (HM SAW [place]MET[place] COMPLEX SFTGEL) 1 Each Capsule, 1 EACH PO BID, CAPSULE 03/19/17 Saw [place] Xtr/Zinc Picolin (SAW PALMETTO CAPSULE) 1 Each Capsule, 2-3 CAP PO DAILY, CAPSULE 03/19/17 Rutin (RUTIN) Unknown Strength Tablet, 50 MG PO DAILY 03/19/17 Gluc Hcl/Csa/Davion Hy/Hyalur Ac (GLUCOSAMINE CHONDROITIN CAP) 1 Each Capsule, 1 EACH PO BID, CAPSULE 03/19/17 Ginkgo Biloba (GINKGO) Unknown Strength Tablet, 1 TAB PO DAILY 03/19/17 Garlic (GARLIC) 1 Each Tablet, 2 TAB PO BID 03/19/17 [place]-3 Fatty Acids/Fish Oil (FISH OIL 1,000 MG CAPSULE) 1 Each Capsule, 2 CAP PO DAILY, CAPSULE 03/19/17 Cyanocobalamin (Vitamin B-12) (VITAMIN B-12) 5,000 Mcg Tab.subl, 1 TAB PO BID 03/19/17 Ubidecarenone (CO Q-10) 400 Mg Capsule, 1 CAP PO DAILY, CAPSULE 03/19/17 Aspirin (Aspirin) 325 Mg Tab, 1 TAB PO DAILY 12/08/11 Discontinued Reported Medications Sodium Chloride (SODIUM CHLORIDE) 1 Gm Tab, 1-2 GM PO DAILY, TAB 03/19/17 Discontinued Scripts Lisinopril (LISINOPRIL) 5 Mg Tablet, 1 TAB PO BID for 90 Days, #180 TAB 4 Refills Prov:EFRAIN GARCIA MD 03/19/17 Diet: Regular Activity: As Tolerated Special Instructions: The patient will be transferred to [facility] for ongoing evaluation and treatment of acute CVA. Copies to: EFRAIN GARCIA MD Venous Thromboembolism Antithrombotics Is Pt On Any Antithrombotics?: No YONAS DUNLAP MD September 14, 2017 17:53
== END 2017-09-14 18:45 | disposition short-term general hospital (02) | DRG 66 ==
LOC: ER 11:33 → MED 15:26
PROVIDERS: ADMIT Internal Medicine; ATTEND Internal Medicine
DX: I63.511 Cerebral infarction due to unspecified occlusion or stenosis of right middle cerebral artery (principal); I10 Essential (primary) hypertension; I35.0 Nonrheumatic aortic (valve) stenosis; Z96.641 Presence of right artificial hip joint; Z88.5 Allergy status to narcotic agent; E78.5 Hyperlipidemia, unspecified; Z88.8 Allergy status to other drugs, medicaments and biological substances; Z95.3 Presence of xenogenic heart valve
CPT/HCPCS: 70450; 70551; 71046; 81001; 82040; 82247; 82310; 82374; 82435; 82565; 82947; 84075; 84132; 84155; 84295; 84450; 84460; 84484; 84520; 85025; 87088; 93005; 99285

== ENCOUNTER → 2017-09-14 | Outpatient (REF) ==
[~2017-09-14] MED LIST changes: +ATOR-1 PO; +CLOP75TA43 PO
== END ==
LOC: AMB 17:51
PROVIDERS: ATTEND Nurse Practitioner
DX: Z02.9 Encounter for administrative examinations, unspecified (principal)

== ENCOUNTER 2017-12-07 13:00 | Outpatient (RCR) | payer MEDICARE, OTHER ==
--- NOTE | 2017-09-21 17:11 | PT INITIAL EVALUATION ---
MEDICAL DIAGNOSIS: CVA TREATMENT DIAGNOSIS: Right Side CVA DATE OF ONSET: 09/14/17 SUBJECTIVE: Octavio is a pleasant 82 year old male presenting to physical therapy following recent episode of R sided CVA. Pt reports that he woke up September, morning confused and was taken to the ER. There imaging was taken and MRI showed an acute infarct in the right MCA territory, with abnormal restricted diffusion in the anterior right temporal lobe and posterior right insula, with additional involvement in the white matter along the posterior right frontal lobe and right parietal lobe, extending into the right temporal lobe. Pt was then transported to the [facility] where he received treatment and was discharged on September,. Pt currently reports no pain. His son and are present for evaluation and notice that he has bumped in to objects around the house. Pt has both hearing and visual deficits. REHAB PROBLEM LIST: Decreased Strength Impaired Transfers Decreased Endurance Decreased Balance Decreased Function Decreased ADL's Decreased Mobility Decreased Gait PREVIOUS MEDICAL HISTORY: See EMR OCCUPATION: See EMR OBJECTIVE: Pt requires multiple cueing for starting and finishing activities. Posture: Pt has L trunk lean when seated with R shoulder IR. ROM: B UE and LE ROM WFL. Strength: UE MMT (L,R): Shoulder: Flex: 4, 5, Ext: 4, 5, Abd: 5, 5, ER: 4+, 5, IR: 4+, 5. Elbow: Flexion: 5, 5, Ext: 4-, 5. LE MMT (L,R): Hip: Flex: 4-, 5, Ext: 4+, 5, Abd: 4+, 4+, Add: 4+, 4+. Knee: Ext : 4, 5, Flex: 4+, 5, Ankle: DF: 4, 5, PF: 4, 4. Mobility: 5 times sit<>stand: 26 seconds without UE support Gait: 6 Minute Walk: 6.5 laps= 338.8 meters. Gait significant for left side lean with occasional bumping in to objects. Decreased step height on L side with shuffling of foot. Other Objective Findings: UE flexor synergy present with MMT of the shoulder. ASSESSMENT: Pt shows signs and symptoms of weakness and abnormality of gait secondary to recent CVA resulting in impaired function. Physical therapy is indicated to address the above listed deficits to return pt to prior level of function with decreased fall risk when performing ADL's. Short Term Goals In 3 weeks pt will increase B LE strength to > 4/5 in all major muscle groups for improved function with ADL's. In 3 weeks pt will increase 5 times sit<>stand time to <20 seconds for improved function with ADL's. In 6 weeks pt will improve 6 minute walk test to 8 laps or more with good gait mechanics for improved function with ADL's. In 3 weeks pt will increase 5 times sit<>stand time to <15 seconds for improved function with ADL's. Patient's Goals Get back to walking regularly, safely. Improve strength. PLAN: Patient to be seen for Manual Therapy/STM/MET Strengthening/condition Ice/Heat Range of Motion Spinal Stabilization Ultrasound Stretching Iontophoresis Neuromuscular Re-ed Closed Chain Program Electrical Stim Posture/Body mechanics Gait Trg/Balance Trg Biofeedback Home Exercise Program Mech./Manual Traction Therapeutic Activities Pelvic Floor 2x/Week for 6 Weeks If you have any questions, comments, or concerns about this report or plan, please contact me at . Thank you, Phyllis Baker, PT, DPT, CLT MTDD
--- NOTE | 2017-09-21 17:14 | SLP EVALUATION SUMMARY REPORT ---
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 CVA also w/ white matter involvement along the posterior R frontal, R parietal, extending to the R temporal lobe. Mr. Beckett and his family report associated changes in cognition, including short-term memory deficits, difficulty following instructions, delayed processing speed, and possible neglect in L visual field. Family also reports some increased reliance on support for participation in IADL's, including computer/iPad use and financial analyst accountant. (Cat) and son (Nolan) were present throughout evaluation procedures. LANGUAGE/COGNITION Portions of the Cognitive Linguistic Quick Test (CLQT) were administered; however, time constraints prevented completion of the assessment to its entirety. The CLQT assesses the relative status of the following five cognitive domains: attention, memory, language, executive functions, and visuospatial skills. This test helps to identify relative strengths and weakness in these five areas. Results will be analyzed and reported upon completion of all subtests during initial treatment session on 09/24/17. Widiespread impairments appear to be present in visuospatial skills, attention, and semantic fluency/thought organization. Left inattention/neglect was evident. Memory will cont to be analyzed. Relative areas of strength were noted in executive function. Pt w/ accurate completion of clock drawing test. However, son reports practicing this activity on a regular basis per recommendations of SOFTWARE DEVELOPMENT TEST ENGINEER at [facility], making it difficult to determine if the clock drawing task provides accurate illustration of planning/visuospatial/executive function skills. Pt has also been practicing semantic fluency tasks at home following discharge from [facility]. Informal evaluation measures revealed decreased initiation to perform tasks, and difficulty transitioning from one activity to the next. Suspect initiation deficits may be contributing to family reports of difficulty following instructions. Pt also exhibited delayed speed of processing, and often benefitted from receiving increased wait-time and multiple repetitions to process information prior to initiating assessment activities. Insight re: areas of cognitive linguistic impairment is emerging; however, pt w / tendency to minimize impact of CVA on participation in daily activities and difficulty self-correcting errors. The Functional Activities Questionnaire was administered w/ input from spouse and son. Perceived difficulties and increased need for assistance were endorsed in the following areas: - care management associate - Assembling tax records, business affairs, etc - Heating water, turning off the sink, using appliances - Paying attention in the presence of competing environmental stimuli - Remembering appointments, occasions, or medications SPEECH: Articulation of speech sounds at word, sentence, and conversational level is WNL VOICE: WNL DYSPHAGIA: No reports of swallowing concerns. SUMMARY This patient demonstrates moderate cognitive deficits, and mild expressive/ receptive language deficits. 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 The patients most significant areas of difficulty were observed in initiation, visual attention, short term memory, and sequencing complex instructions. Mild perseverative/paraphasic errors were also observed during informal conversational analysis Cognitive/communication impairments may functionally limit safe and independent participation in the home and community. Patient may experience difficulties completing the following independent activities of daily living: Execution of complex instructions for safety and medical plan of care Independent medication management Independent financial analyst accountant Interpreting/reading complex material (e.g., tax forms, bank statements, medication instructions) Navigating Scheduling appointments and interpreting calendars ST services are warranted to provide patient and family instruction in compensatory strategies and internal cognitive exercises to support identified areas of impairment for decreased reliance on caregivers and independent completion of IADL tasks. Pt w/ very high prior level of function, and exhibits strong desire to continue responsibility for previously executed ADL/ IADLs. RECOMMENDATIONS 1. ST 3x/wk PROGNOSIS: Excellent. Very strong family support. High PLOF. PLAN OF CARE Short Term Goals 1. The patient will consistently identify items/information in L visual field during 100% of opportunities w/ min verbal/visual cues for strategy implementation. 2. The patient will initiate and execute multi-level instructions for safe participation in IADL tasks during 80% of opportunities w/ min verbal/visual cues. 3. The patient will independently utilize external and internal memory strategies to recall new information (up to 4 items) following 10 minute delay. Long-Term Goals 1. The patient will demonstrate functional cognitive communication for safe and independent completion of IADL activities, including medication management, financial analyst accountant, appointment scheduling, and complex reading. Thank you for this referral. Please call [phone] Shasha Mullen M.S., CCC-SOFTWARE DEVELOPMENT TEST ENGINEER [*] MTDD
--- NOTE | 2017-09-24 15:07 | OT INITIAL EVALUATION ---
SUBJECTIVE: Patient is an 82 year old right hand dominate male s/p right sided CVA that occurred on 09/14/2017. Patient reports that he was having difficulty thinking correctly and was then brought to the ER where he was transferred to [facility] in [place], [place]. Patient has had a history of CVA in the past. Patient was discharged home on 09/18/2017 with referred to OP OT/PT/and SERVER DEVELOPER services. Patient reports that he received therapy during his short stay in [place]. Patient reports that he is able to complete all of his self cares without assistance, including bathing. Patient has been making coffee and light meals since he has been at home. Patient was very active prior to the CVA and plans to return back to previous level of functioning. Patient has a strong support system at home by and family who live in town. Previous Medical History: please refer to chart Current Limitations: decreased strength and coordination of the left hand, decreased endurance Occupation: N/A OBJECTIVE: ROM: Right Left Shoulder Flexion WFL WFL Shoulder Extension WFL WFL Shoulder Abduction WFL WFL Elbow Flexion WFL WFL Wrist Extension WFL WFL Strength: MMT: Right Left Shoulder Flexion 5/5 5/5 Shoulder Extension 5/5 5/5 Shoulder Abduction 5/5 5/5 Elbow Flexion 5/5 5/5 Wrist Extension 5/5 5/5 (5= normal, 4= good, 3= fair, 2= poor, 1= trace) Bee Tender Right = 48.3# (Age/gender normative= 65.7#) Left= 55# (Age/gender normative=55#) Lateral Pinch Right =17.3# (Age/gender normative= 20.5#) Left= 17.3# (Age/gender normative= 19.1#) 3 Point Pinch Right = 14.3# (Age/gender normative= 18.7#) Left= 13.8# (Age/gender normative= 18.3#) Sensation: intact, patient was able to discriminate between dull and sharp testing; patient was able to complete identify 6/7 objects with the eyes closed on the right and left hand Vision: Patient has pre-existing decrease in vision due to bilateral cataracts. Patient has surgery set for October 2017. Otherwise, patient does not report of any new changes in vision since the CVA Special Test: 9 Hole Peg Test (dexterity) Right= 35 seconds (Age/gender normative= 22.9 seconds) Left= 42 seconds (Age/gender normative= 26.4 seconds) ASSESSMENT Patient demonstrated with no obvious changes in bilateral UE strength during testing. Presented with good strength. Patient does exhibit decreased director employee safety and health and pinch strength in both hands. When fine motor coordination was tested the left hand demonstrated a decrease in functional use of that hand. Left hand appeared a little delayed during activities. Patient did appear to take longer to process directions and directions where more that one step was involved. Patient to benefit from skilled OT services to increase fine motor coordination of the left hand, overall functional endurance, and safety during ADLs. Short Term Goals 1.Patient will decrease time on the 9 Hole Peg Test with the left hand by 5 seconds in order to complete self cares in a timely manner. 2.Patient will complete HEP without assistance. 3.Patient will be able to perform multi-step directions without additional verbal cues in ADL activities. 4.Patient will increase left pinch strength by 3# in order to complete self cares. PLAN: Plan to see patient 2-3 times a week for 6-8 weeks. Plan of care to include: self care re-training, ther ex, there act, Thank you for this referral. If you have any questions, concerns, or comments about this report or plan, please contact me at [phone]. Paulina Caraballo MS, OTR/L Occupational Therapist MISTY
--- NOTE | 2017-10-22 15:26 | OT PLAN OF CARE ---
SUBJECTIVE: Patient is an 82 year old right hand dominate male s/p right sided CVA that occurred on 09/14/2017. Patient reports that he has had no difficulty with ADLs at home except sometimes he has a difficult time getting his jacket on because he pulls the sleeve inside out when he takes it off making it difficult to put his arm through when he goes to put it on. Discussed making sure that the sleeves are in correct position before attempting to put it on. Patient has been seen in the clinic for 10 visits. Previous Medical History: please refer to chart Current Limitations: decreased strength and coordination of the left hand, decreased endurance Occupation: N/A OBJECTIVE: ROM: Right Left Shoulder Flexion WFL WFL Shoulder Extension WFL WFL Shoulder Abduction WFL WFL Elbow Flexion WFL WFL Wrist Extension WFL WFL Strength: MMT: Right Left Shoulder Flexion 5/5 5/5 Shoulder Extension 5/5 5/5 Shoulder Abduction 5/5 5/5 Elbow Flexion 5/5 5/5 Wrist Extension 5/5 5/5 (5= normal, 4= good, 3= fair, 2= poor, 1= trace) Instruction Librarian Right = 48.3#, now 43# (Age/gender normative= 65.7#) Left= 55#, now 52.7# (Age/gender normative=55#) Lateral Pinch Right =17.3#, now 17.2# (Age/gender normative= 20.5#) Left= 17.3#, now 17.5# (Age/gender normative= 19.1#) 3 Point Pinch Right = 14.3#, now 13.3# (Age/gender normative= 18.7#) Left= 13.8#, now 12.2# (Age/gender normative= 18.3#) Sensation: intact Vision: Patient has pre-existing decrease in vision due to bilateral cataracts. Patient has surgery set for October 2017. Otherwise, patient does not report of any new changes in vision since the CVA Special Test: 9 Hole Peg Test (dexterity) Right= 35 seconds, now 35 seconds (Age/gender normative= 22.9 seconds) Left= 42 seconds, now 37 seconds (Age/gender normative= 26.4 seconds) ASSESSMENT Patient presents with decreased mate fourth and pinch strength compared to the initial evaluation, which this wasn't the main focus of the plan of care. Patient has enough strength to perform his everyday activities. Fine motor coordination of the left hand improved. Working mainly on following directions and having the patient perform multi-step directions without cues. Patient still needs cues when sequencing steps and has some difficulty transitioning from one activity to the next or within an activity. Patient would benefit from continued OT services. Short Term Goals 1.Patient will decrease time on the 9 Hole Peg Test with the left hand by 5 seconds in order to complete self cares in a timely manner. MET 2.Patient will complete HEP without assistance. MET 3.Patient will be able to perform multi-step directions without additional verbal cues in ADL activities. NOT MET 4.Patient will increase left pinch strength by 3# in order to complete self cares. NOT MET 5.Patient will be able to sequence steps in an activity without verbal cues. 6.Patient will be able to complete map reading activity without verbal cues. PLAN: Plan to see patient 2-3 times a week for 6-8 weeks. Plan of care to include: self care re-training, ther ex, there act, cognitive retraining Thank you for this referral. If you have any questions, concerns, or comments about this report or plan, please contact me at [phone]. Paulina Caraballo MS, OTR/L Occupational Therapist MISTY
--- NOTE | 2017-10-23 08:34 | PT PLAN OF CARE ---
Physician: Helga Cloud MD Patient is being seen: 2x/Week Therapist: Phyllis Baker, PT, DPT, CLT Medical Diagnosis: CVA Treatment Diagnosis: Right Side CVA Date of Onset: 09/14/17 Date of Initial Evaluation: 09/21/17 Date patient was last seen: 10/22/17 Number of treatments: 10 Number of cancellations/No shows: 0 INTERVENTIONS: Manual Therapy/STM/MET Strengthening/condition Ice/Heat Range of Motion Spinal Stabilization Ultrasound Stretching Iontophoresis Neuromuscular Re-ed Closed Chain Program Electrical Stim Posture/Body mechanics Gait Trg/Balance Trg Biofeedback Home Exercise Program Mech./Manual Traction Therapeutic Activities Pelvic Floor GOALS: In 3 weeks pt will increase B LE strength to > 4/5 in all major muscle groups for improved function with ADL's. MET In 3 weeks pt will increase 5 times sit<>stand time to <20 seconds for improved function with ADL's. MET In 6 weeks pt will improve 6 minute walk test to 8 laps or more with good gait mechanics for improved function with ADL's. MET In 3 weeks pt will increase 5 times sit<>stand time to <15 seconds for improved function with ADL's. In Progress PATIENT'S GOAL: Get back to walking regularly, safely. Improve strength. Status of Patient's Goals: 3/4 MET Patient Compliance: Good Prognosis: Good Reasons for continuing therapy: Octavio shows good progress with strength and stability with increased function with walking and balance in ADL's. Lingering deficits include decreased hip strength as well as neuromotor activation with remaining delay with quick reaction. Pt also when at higher speeds remains to have left side ignoral status with occasional bumping into objects. However, at slower speeds this is no longer evident. Synergistic reflexes are no longer evident with strength testing. Further PT is indicated for this patient to focus on improving speed and strength with movement for increased function with ADL's and return to recreational activities. Posture: Pt has L trunk lean when seated with R shoulder IR. ROM: B UE and LE ROM WFL. Strength: UE MMT (L,R): Shoulder: Flex: 4, 5, Ext: 4, 5, Abd: 5, 5, ER: 4+, 5, IR: 4+, 5. Elbow: Flexion: 5, 5, Ext: 4, 5. LE MMT (L,R): Hip: Flex: 5, 4+, Ext: 4+, 4+, Abd: 4+, 4+, Add: 4+, 4+. Knee: Ext: 5, 5, Flex: 4+, 5, Ankle: DF: 4+, 5, PF: 4+, 4+. Gait: 6 Minute Walk Test: 8.75 laps= 430 meters Mobility: 5 times sit<>stand: 19 seconds without UE support If you have any questions or concerns, please feel free to contact me at [phone]. Thank you, Phyllis Baker, PT, DPT, CLT MTDD
--- NOTE | 2017-10-24 09:28 | SLP PLAN OF CARE ---
SPEECH PATHOLOGY PROGRESS REPORT Physician: Helga Cloud MD Progress Note Date: 10/22/17 Clinician: Padma Coombs M.S., CCC-BALING MACHINE TENDER Patient: Octavio Beckett : 1935 The patient has been attending ST at [facility] 2/wk since 09/21/17. He attends scheduled visits regularly with no missed/cancelled visits since last report. The patient continues to appear in general good health. Current POC The patient has been working on the following short term goals: 1. The patient will consistently identify items/information in L visual field during 100% of opportunities w/ min verbal/visual cues for strategy implementation. As of 10/22/17: Progressing. The patient reports the use of multiple strategies at home to identify the left edge of information. The patient appears aware of his deficit and is motivated to improve. 2. The patient will initiate and execute multi-level instructions for safe participation in IADL tasks during 80% of opportunities w/ min verbal/visual cues. As of 10/22/17 Progressing. The patient is executing multi-level instructions with an average of 75% accuracy. Initiation of new tasks and maintaining focus during periods of divided attention may be impacting overall performance. 3. The patient will independently utilize external and internal memory strategies to recall new information (up to 4 items) following 10 minute delay. As of 10/22/17 GOAL MET. Discontinue. The patient has utilized note-taking and pneumonic devices to recall information (up to 5 items) following a 10 minute delay. The patient reports utilizing these strategies independently with success at home. Updated POC 1. The patient will consistently identify items/information in L visual field during 100% of opportunities w/ min verbal/visual cues for strategy implementation. 2. The patient will execute multi-level instructions during periods of divided attention for safe participation in IADL tasks during 80% of opportunities w/ min verbal/visual cues. 3. The patient will initiate new tasks with min verbal/visual cues in 80% of opportunities. Summary The patient is making progress toward identifying information in the left visual field and demonstrates increased awareness of this deficit. Delay in the initiation of new tasks may be impacting the patients ability to execute multi- level instructions and will be targeted separately in the updated POC. The patient has met his goal to use external and internal memory strategies to recall information and the goal will be discontinued at this time. The patient is motivated to improve in his abilities and should continue to make good progress. Recommendation Patient would benefit from continued ST 2x/12wk to address above POC. Prognosis Very Good Thank you for referring this patient to [facility], Speech- Language Pathology. Please call [phone] to contact the BALING MACHINE TENDER. Respectfully, Padma Coombs M.S., [facility]-BALING MACHINE TENDER Physician Signature Date [*] MTDD
--- NOTE | 2017-12-03 14:37 | SLP PLAN OF CARE ---
SPEECH PATHOLOGY PROGRESS REPORT Physician: Helga Cloud MD Patient Name: Octavio Beckett Date of Progress Assessment: 12/03/2017 Patient : 1935 Clinician: Shasha Mullen M.S., [facility]WAREHOUSE DISTRIBUTION ASSOCIATE Treatment Dx: Moderate cognitive deficit BACKGROUND Mr. Octavio Beckett attends outpatient cognitive linguistic therapy 2x/week at [facility]. He has participated in a total of 20 sessions since his initial evaluation. Mr. Beckett is an 82 year old male experiencing cognitive-linguistic deficits associated with a right MCA CVA. Mr. Beckett and his family report deficits in short-term memory, difficulty following instructions, delayed processing speed, and neglect in L visual field. Family also reports some increased reliance on support for participation in IADL's, including computer/ iPad use and financial agent. Mr. Beckett reports improvements in short term memory following participation in skilled speech services, with increased utilization of external compensatory systems in home environment. He also reports decreased reliance on family members for completion of IADLs, and has demonstrated steady progress with consistent attendance throughout the course of cognitive-linguistic interventions Current POC The patient has been working on the following short term goals: 1. The patient will consistently identify items/information in L visual field during 100% of opportunities w/ min verbal/visual cues for strategy implementation. As of 12/03/17: Goal met. Discontinue. The patient has demonstrated improved independence with utilization of visual scanning strategies. He continues to rely on intermittent reminders for consistent identification of information in L visual field, but also exhibits instances of self-correction and generalization between diverse treatment activities. The patient will benefit from opportunities to apply strategies in contexts outside of the treatment room. 2. The patient will execute multi-level instructions during periods of divided attention for safe participation in IADL tasks during 80% of opportunities w/ min verbal/visual cues. Progressing. The patient executes multi-level instructions during periods of divided attention during 70% of opportunities with min to mod verbal/visual cues. He frequently becomes distracted by conversational tangents and benefits from direct instruction to re-direct attention to the task at hand. 3. The patient will initiate new tasks with min verbal/visual cues in 80% of opportunities. As of 12/03/17: Goal met. Discontinue. The patient has exhibited substantial improvements with task initiation during structured and non-structured treatment activities, although occasional cues continue to be required. He has also demonstrated increased insight re: difficulty transitioning from one activity to the next, which appears to have contributed to noted improvements. Updated POC 1. The patient will consistently attend to information in L visual field during contexts outside of the treatment room during 80% of opportunities w/ min verbal /visual cues for strategy implementation. 2. The patient will execute multi-level instructions during periods of divided attention for safe participation in IADL tasks during 80% of opportunities w/ min verbal/visual cues. 3. The patient will sustain attention during structured treatment activities without occurrence of conversational tangents when provided with occasional verbal cues for task re-direction. Summary The patient has made consistent progress toward identifying information in the left visual field, and demonstrates strong motivation to return to driving activities. Although improvements have been noted during structured treatment tasks with direct instruction and knowledge of expectations, the patient will benefit from opportunities to apply trained strategies in generalized contexts prior to considering the recommendation of returning driving responsibilities. The patient continues to demonstrate difficulty with execution of multi-level instructions, and is often negatively impacted by conversational tangents and decreased ability to divide attention between tasks. The patient has met his goal to promote initiation of novel tasks, which will be discontinued at this time. The patient is highly motivated to improve and should continue to make good progress. Recommendation Patient would benefit from continued ST 2x/12wk to address above POC. Prognosis Very Good Thank you for referring this patient to [facility], Speech- Language Pathology. Please call [phone] to contact the WAREHOUSE DISTRIBUTION ASSOCIATE. Respectfully, Shasha Mullen M.S., [facility])-WAREHOUSE DISTRIBUTION ASSOCIATE Physician Signature Date [*] MTDD
[~2017-12-07 13:00] MED LIST changes: +ASPI81TA94 PO; +ATOR-1 PO; +CITA-155 PO; +CLOP75TA43 PO; +DICL100G39 TOP; +DUL20 PO
--- NOTE | 2017-12-07 14:12 | PT PLAN OF CARE ---
Physician: Helga Cloud MD Patient is being seen: 2-3x/Week Therapist: Phyllis Baker, PT, DPT, CLT Medical Diagnosis: CVA Treatment Diagnosis: Right Side CVA Date of Onset: 09/14/17 Date of Initial Evaluation: 09/21/17 Date patient was last seen: 12/07/17 Number of treatments: 18 Number of cancellations/No shows: 2 INTERVENTIONS: Manual Therapy/STM/MET Strengthening/condition Ice/Heat Range of Motion Spinal Stabilization Ultrasound Stretching Iontophoresis Neuromuscular Re-ed Closed Chain Program Electrical Stim Posture/Body mechanics Gait Trg/Balance Trg Biofeedback Home Exercise Program Mech./Manual Traction Therapeutic Activities Pelvic Floor GOALS: In 3 weeks pt will increase B LE strength to > 4/5 in all major muscle groups for improved function with ADL's. MET In 3 weeks pt will increase 5 times sit<>stand time to <20 seconds for improved function with ADL's. MET In 6 weeks pt will improve 6 minute walk test to 8 laps or more with good gait mechanics for improved function with ADL's. MET In 3 weeks pt will increase 5 times sit<>stand time to <15 seconds for improved function with ADL's. MET PATIENT'S GOAL: Get back to walking regularly, safely. Improve strength. Status of Patient's Goals: 3/4 MET Patient Compliance: Good Prognosis: Good Reasons for discharge from therapy: Octavio is to discharge from physical therapy at this time secondary to completion of 4/4 functional goals. At this time pt is performing independent home exercise program regularly and shows improved community ambulation and mobility. Pt shows improved strength and balance with ADL's and overall improved function. Upon discharge pt is to continue with independent exercise and follow up with further PT if any additional symptoms arise. Posture: Pt has L trunk lean when seated with R shoulder IR. ROM: B UE and LE ROM WFL. Strength: UE MMT (L,R): Shoulder: Flex: 4+, 5, Ext: 5, 5, Abd: 5, 5, ER: 4+, 5, IR: 4+, 5. Elbow: Flexion: 5, 5, Ext: 5, 5. LE MMT (L,R): Hip: Flex: 5, 4+, Ext: 4+, 4+, Abd: 4+, 4+, Add: 5, 5. Knee: Ext : 5, 5, Flex: 5, 5, Ankle: DF: 4+, 5, PF: 5, 5. Gait: 6 Minute Walk Test: 8.75 laps= 430 meters Mobility: 5 times sit<>stand: 11 seconds without UE support If you have any questions or concerns, please feel free to contact me at [phone]. Thank you, Phyllis Baker, PT, DPT, CLT MTDD
--- NOTE | 2017-12-07 15:43 | OT DISCHARGE SUMMARY ---
SUBJECTIVE: Patient is an 82 year old right hand dominate male s/p right sided CVA that occurred on 09/14/2017. Patient reports that he has been able to do all of his self cares and feels that OT services has been beneficial in helping him with problems solving with everyday activities. Patient has been seen in the clinic for 20 visits. Previous Medical History: please refer to chart Current Limitations: decreased strength and coordination of the left hand, decreased endurance Occupation: N/A OBJECTIVE: ROM: Right Left Shoulder Flexion WFL WFL Shoulder Extension WFL WFL Shoulder Abduction WFL WFL Elbow Flexion WFL WFL Wrist Extension WFL WFL Strength: MMT: Right Left Shoulder Flexion 5/5 5/5 Shoulder Extension 5/5 5/5 Shoulder Abduction 5/5 5/5 Elbow Flexion 5/5 5/5 Wrist Extension 5/5 5/5 (5= normal, 4= good, 3= fair, 2= poor, 1= trace) Field Service Specialist Right = 48.3#, now 43# (Age/gender normative= 65.7#) Left= 55#, now 51.7# (Age/gender normative=55#) Lateral Pinch Right =17.3#, now 17# (Age/gender normative= 20.5#) Left= 17.3#, now 18.2# (Age/gender normative= 19.1#) 3 Point Pinch Right = 14.3#, now 13.7# (Age/gender normative= 18.7#) Left= 13.8#, now 13.7# (Age/gender normative= 18.3#) Sensation: intact Vision: Patient had cataract surgery on the right eye on 11/15/17 Special Test: 9 Hole Peg Test (dexterity) Right= 35 seconds, now 37 seconds (Age/gender normative= 22.9 seconds) Left= 42 seconds, now 35 seconds (Age/gender normative= 26.4 seconds) ASSESSMENT Patient presents with decreased airplane cabin 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 Patient has enough strength to perform his everyday activities. Fine motor coordination of the left hand improved. Focused on following directions, problem solving and having the patient perform multi-step directions without cues. Patient continues to need some cues, but has made improvements in following directions and problem solving. At this time, patient is good to be discharged from OT services. Short Term Goals 1.Patient will decrease time on the 9 Hole Peg Test with the left hand by 5 seconds in order to complete self cares in a timely manner. MET 2.Patient will complete HEP without assistance. MET 3.Patient will be able to perform multi-step directions without additional verbal cues in ADL activities. MET 4.Patient will increase left pinch strength by 3# in order to complete self cares. NOT MET 5.Patient will be able to sequence steps in an activity without verbal cues. PARTIALLY MET 6.Patient will be able to complete map reading activity without verbal cues. MET PLAN: Plan to discharge patient from OT services at this time. Recommended that if the patient feels that he has a decrease in ability to perform self cares that he can return back to OT services for another evaluation. Thank you for this referral. If you have any questions, concerns, or comments about this report or plan, please contact me at [phone]. Paulina Caraballo MS, OTR/L Occupational Therapist [facility]
== END 2017-12-20 ==
LOC: PT 13:00
PROVIDERS: ATTEND Family Medicine
DX: I69.928 Other speech and language deficits following unspecified cerebrovascular disease (principal); R26.89 Other abnormalities of gait and mobility; R53.1 Weakness
CPT/HCPCS: 92507; 96125; 97110; 97112; 97116; 97162; 97165; 97168; 97530; G0515

== ENCOUNTER → 2018-02-18 | Outpatient (CLI) | payer MEDICARE, OTHER ==
[~2018-02-18] MED LIST changes: +FLUT16SP19 NS
== END ==
LOC: LAB 10:15
PROVIDERS: ATTEND Family Medicine
DX: I10 Essential (primary) hypertension (principal)
CPT/HCPCS: 36415; 82040; 82247; 82310; 82374; 82435; 82565; 82947; 84075; 84132; 84155; 84295; 84450; 84460; 84520

== ENCOUNTER → 2018-03-13 | Outpatient (CLI) | payer MEDICARE, OTHER | LOC: AUD 14:00 | PROVIDERS: ATTEND Family Medicine | DX: H90.41 Sensorineural hearing loss, unilateral, right ear, with unrestricted hearing on the contralateral side (principal); Z86.73 Personal history of transient ischemic attack (TIA), and cerebral infarction without residual deficits | CPT/HCPCS: 92557 ==

== ENCOUNTER 2018-03-20 14:19 | Outpatient (RCR) | payer MEDICARE, OTHER ==
--- NOTE | 2017-12-25 16:06 | SLP PLAN OF CARE ---
SPEECH PATHOLOGY PLAN OF CARE UPDATE Physician: Helga Cloud MD Patient Name: Octavio Beckett Date of Report: 12/21/2017 Patient : 1935 Clinician: Shasha Mullen M.S., [facility]-ELECTRONIC INSTALLER Treatment Dx: Mild cognitive deficit BACKGROUND Mr. 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 He attends outpatient cognitive linguistic therapy 2x/week at [facility], and has participated in a total of 22 sessions since his initial evaluation. Mr. Beckett was discharged per billing office, but will continue to receive ST services under a new treatment case. Current POC The patient has been working on the following short term goals: 1. The patient will consistently attend to information in L visual field during contexts outside of the treatment room during 80% of opportunities w/ min verbal /visual cues for strategy implementation. GOAL MET. D/C. The pt attends to information in L visual field in contexts outside the tx room with 90% accuracy, occ cues for attention to detail. 2. The patient will execute multi-level instructions during periods of divided attention for safe participation in IADL tasks during 80% of opportunities w/ min verbal/visual cues. Progressing. The pt executes multi-level instructions during periods of divided attention via intentional environmental distractions with simultaneous completion of functional activities with 70% accuracy, mod to min cues. Pt exhibits difficulty with multi-tasking, but demonstrates evolving awareness of deficit. 3. The patient will sustain attention during structured treatment activities without occurrence of conversational tangents when provided with occasional verbal cues for task re-direction. Progressing. The pt continues to exhibit conversational tangents throughout tx encounters, but is quickly redirected with direct verbal cueing. NEW GOAL: The patient will complete higher-level, executive function activities (prospective problem solving, organization, planning) with 80% accuracy when provided with min cues to support heightened independence with IADL tasks. Summary Mr. Beckett has made consistent progress towards treatment goals. He continues to demonstrate difficulty with execution of multi-level instructions, and is often negatively impacted by conversational tangents with decreased ability to divide attention between tasks. He also intermittently becomes frustrated by difficulty solving functional problems during participation in higher level, IADL tasks. The patient is highly motivated to improve and should continue to make good progress. He and his family report improvements in short term memory following participation in skilled speech services, with increased utilization of external compensatory systems in home environment. He also reports decreased reliance on family members for completion of IADLs, improved attention to left visual field, and he has demonstrated steady progress with consistent attendance throughout the course of cognitive-linguistic interventions Recommendation Patient would benefit from continued ST 2x/12wk to address above POC. 22 sessions completed. Prognosis Very Good Thank you for referring this patient to [facility], Speech- Language Pathology. Please call [phone] to contact the ELECTRONIC INSTALLER. Respectfully, Shasha Mullen M.S., [facility]-ELECTRONIC INSTALLER Physician Signature Date [*] MTDD
--- NOTE | 2018-02-01 09:37 | SLP PLAN OF CARE ---
SPEECH PATHOLOGY PLAN OF CARE UPDATE Physician: Helga Cloud MD Patient Name: Octavio Beckett Date of Report: 01/29/2018 Patient : 1935 Clinician: Padma Coombs M.S., CCC-DATABASE ADMINISTRATION MANAGER Treatment Dx: Mild cognitive-linguistic deficit BACKGROUND Mr. 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 He attends outpatient cognitive linguistic therapy 2x/week at [facility]. He has received ST tx 10x since last report. Current POC The patient has been working on the following short term goals: 1. The patient will execute multi-level instructions during periods of divided attention for safe participation in IADL tasks during 80% of opportunities w/ min verbal/visual cues. Progressing. The pt executes multi-level instructions during periods of divided attention via intentional environmental distractions with simultaneous completion of functional activities with approximately 75% accuracy with mod to min cues. Self awareness of deficits continues to evolve and pt is using learned strategies more independently. 2. The patient will sustain attention during structured treatment activities without occurrence of conversational tangents when provided with occasional verbal cues for task re-direction. Goal Met: DC Goal 3. The patient will complete higher-level, executive function activities (prospective problem solving, organization, planning) with 80% accuracy when provided with min cues to support heightened independence with IADL tasks. Progressing: The patient continues to struggle with cognitive organization during higher level cognitive tasks. He responds well to moderate level cuing including visual tracking aides and verbal cues. He is performing at approximately 70% accuracy with cuing. He has demonstrated generalizing of strategies to tasks performed at home including preparing lists, visual tracking aides. Summary Mr. Beckett continues to make consistent progress towards treatment goals and has met another goal as indicated above. Self awareness of deficts is increasing as is indep use of learned strategies. He has begun to demonstrate generalization of skills to home environment as per his report. He reports successful leadership of discussion group at [facility]. He reports he was able to stay on track and present information in an organized manner. He credits much of this success to progress made with speech therapy services. He is not yet back to baseline cognitive-linguistic function and would like to continues with speech therapy to attain his goal of returning to [facility]. Given Mr. Beckett's success with speech therapy his progrnosis is very good and it is recommended he continue with ST at this time. Recommendation Patient would benefit from continued ST 2x/12wk to address updated POC as above Prognosis Very Good Thank you for referring this patient to [facility], Speech- Language Pathology. Please call [phone] to contact the DATABASE ADMINISTRATION MANAGER. Respectfully, Padma Coombs M.S., [facility]-DATABASE ADMINISTRATION MANAGER Physician Signature Date MTDD
--- NOTE | 2018-03-14 09:04 | SLP PLAN OF CARE ---
SPEECH PATHOLOGY PLAN OF CARE UPDATE Physician: Helga Cloud MD Patient Name: Octavio Beckett Date of Report: 03-07-18 Patient : 1935 Clinician: Padma Coombs M.S., CCC-INDUSTRIAL DIAMOND POLISHER Treatment Dx: Mild cognitive-linguistic deficit BACKGROUND Mr. 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 He attends outpatient cognitive linguistic therapy 2x/week at [facility]. He has received ST tx 10x since last report. Current POC The patient has been working on the following short term goals: 1. The patient will execute multi-level instructions during periods of divided attention for safe participation in IADL tasks during 80% of opportunities w/ min verbal/visual cues. Progressing. The pt executes multi-level instructions during periods of divided attention via intentional environmental distractions with simultaneous completion of functional activities with approximately 83% accuracy with mod cues. 2. The patient will complete higher-level, executive function activities (prospective problem solving, organization, planning) with 80% accuracy when provided with min cues to support heightened independence with IADL tasks. DC GOAL MET: The patient continues to struggle with cognitive organization during higher level cognitive tasks. He responds well to moderate level cuing including visual tracking aides and verbal cues. He is performing at an average of 85% with min assist. This difficulty of this goal will be updated to reflect the patient's progress. NEW GOAL 2. The patient will complete higher-level, executive function activities (prospective problem solving, organization, planning) with 90% accuracy independently to support heightened independence with IADL tasks Summary In addition to his established POC, Mr. Beckett has been working with ST to complete the TAMANNA Inbound Sales Representative OFF-ROAD Assessment Battery. This assessment was initiated following conversations with the patient and his family (i.e., spouse, daughter) regarding their concerns with his returning to driving following CVA. The results of this assessment are not intended to clear the patient to drive. The results of this assessment provide additional information regarding whether or not the patient may be ready to take an on-road driving assessment, receive a recommendation to enroll in a professional driver training program, and provide information as to how additional cognitive-linguistic therapy may assist the patient in reaching his personal goal of returning to driving. This assessment is scheduled to be completed by the end of the week 03-11-18. An summary report will be compiled and submitted to his primary physician as well as reviewed the with the patient and his family (ie spouse, daughter). Recommendation Patient would benefit from continued ST /12wk to address updated POC as above. An updated POC will be submitted to the medical record following completion of the TAMANNA Prognosis Very Good Thank you for referring this patient to [facility], Speech- Language Pathology. Please call [phone] to contact the INDUSTRIAL DIAMOND POLISHER. Respectfully, Padma Coombs M.S., [facility]-INDUSTRIAL DIAMOND POLISHER Physician Signature Date MTDD
== END 2018-03-21 ==
LOC: PT 14:19
PROVIDERS: ATTEND Family Medicine
DX: I69.928 Other speech and language deficits following unspecified cerebrovascular disease (principal); R26.89 Other abnormalities of gait and mobility; R53.1 Weakness

== ENCOUNTER 2018-04-11 13:00 | Outpatient (RCR) | payer MEDICARE, OTHER ==
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
== END 2018-04-11 18:00 | disposition home or self-care (01) ==
LOC: PT 13:00
PROVIDERS: ATTEND Family Medicine
DX: I69.928 Other speech and language deficits following unspecified cerebrovascular disease (principal); R26.89 Other abnormalities of gait and mobility; R53.1 Weakness

== ENCOUNTER 2018-08-20 13:00 | Outpatient (RCR) | payer MEDICARE, OTHER ==
--- NOTE | 2018-05-30 15:35 | SPEECH INITIAL EVALUATION ---
INITIAL SPEECH THERAPY EVALUATION REPORT Cognitive Communication Assessment Patient Name: Octavio Beckett Date of Evaluation: 05-24-2018, 05-28-18 Patient : 1935 Clinician: Padma Coombs M.S., CCC-AUDITOR SUPERVISOR Treatment Dx: Cognitive-Linguistic deficit BACKGROUND The patient is an 82 year old male experiencing cognitive-linguistic deficits following R MCA CVA w/ restricted diffusion in R anterior temporal lobe and posterior R insula. CVA also w/ white matter involvement along the posterior R frontal, R parietal, extending to the R temporal lobe. Mr. Beckett was receiving ST in 2018 but took a break over the holidays d/t busy family schedule and his reliance on family members for transportation. He and family report a decline during ST hiatus and would like begin with ST again. COGNITION Cognitive Linguistic Quick Test (CLQT) assesses the relative status of the following five cognitive domains: attention, memory, language, executive functions, and visuospatial skills. This test helps to identify relative strengths and weakness in these five areas. RESULTS of CLQT Severity Attention: mild deficit : 137/215 (WNL =180-215) Memory: mild deficit: 149/154 (UOL=808-792) Executive Functions: moderate deficit 19/40 (WNL= 24-40) Language: no deficit 31/37 (WNL=29-37) Visuospatial Skills: mild deficits 63/105 (WNL=82-105) Composite Severity Rating: Mild Cognitive deficits 3.0/4.0 (WNL=3.5-4.0) Informal evaluation measures reveal decreased initiation to perform tasks and delayed processing speed when transitioning from one activity to the next. Also the patient can become easily confused when attempting to self correct errors. SPEECH: Articulation of speech sounds at word, sentence, and conversational level is WNL VOICE: WNL DYSPHAGIA: No reports of swallowing concerns. SUMMARY This patient demonstrates mild cognitive deficits which is an improvement over initial testing in 09/2017. He continues to work with daughter to manage finances. He drives occasionally and usually though not always with another adult in the car. The patients most significant areas of deficits is executive function. Language is an area of strength. Mild perseverative/paraphasic errors were observed. Cognitive/communication impairments may functionally limit safe and independent participation in the home and community. Patient may experience difficulties completing the following independent activities of daily living: Execution of complex instructions for safety and medical plan of care Independent medication management Independent financial auditor Interpreting/reading complex material (e.g., tax forms, bank statements, medication instructions) Navigating Scheduling appointments and interpreting calendars ST services are medically necessary to address areas of deficits and increase independence and safety with functional daily tasks. RECOMMENDATIONS 1. ST 2x/wk PROGNOSIS: Very good. Family support. Past progress POC STG 1. The patient will execute multi-level instructions during periods of divided attention for safe participation in IADL tasks during 80% of opportunities w/ min verbal/visual cues. 2. The patient will complete higher-level, executive function activities (prospective problem solving, organization, planning) with 90% accuracy independently to support heightened independence with IADL tasks. 3. Pt will locate items R/L of midline for target cancellation tasks/trail- making/editing/sentence reading with min assist and 90% accuracy LTG Pt will demonstrate independent completion of functional IADL activities Thank you for this referral. Please call [phone] Padma Coombs M.S., CCC-AUDITOR SUPERVISOR [facility] Certified [facility] Dysphagia Therapy Care Certified Physician Signature Date MTDD
--- NOTE | 2018-07-11 13:19 | SLP PLAN OF CARE ---
SPEECH PATHOLOGY PLAN OF CARE UPDATE Physician: Helga Cloud MD Patient Name: Octavio Beckett Date of Report: 07-09-17 Patient : 1935 83 yrs Clinician: Padma Coombs M.S., CCC-TAILINGS DAM PUMPER Treatment Dx: Mild cognitive-linguistic deficit post CVA BACKGROUND Mr. Octavio Beckett is an 83 year old male experiencing cognitive-linguistic deficits associated with a right MCA CVA. He attends outpatient cognitive linguistic therapy 2x/week at [facility]. He has received ST tx 10x since last report. Current POC The patient has been working on the following short term goals: 1. The patient will execute multi-level instructions during periods of divided attention for safe participation in IADL tasks during 80% of opportunities w/ min verbal/visual cues. GOA MET: DC GOAL: Current accuracy averaging 85% with 2 step instructions 2. The patient will complete higher-level, executive function activities (prospective problem solving, organization, planning) with 90% accuracy independently to support heightened independence with IADL tasks PROGRESSING: Pt currently performing at approximately 85% acc. independently 3. Pt will locate items R/L of midline for target cancellation tasks/trail- making/editing/sentence reading with min assist and 90% accuracy PROGRESSING: Pt receiving min or mod assist to achieve average of approximately 85% Summary The patient has met his multilevel instruction goal and this will be DCd. He continues to struggle with visuospatial tasks including visual construction and visual discrimination . ST continues to be medically necessary to address this and executive function deficits. Recommendation Patient would benefit from continued ST 2x/12wk to address updated POC as above. An updated POC will be submitted to the medical record following completion of the TAMANNA Prognosis Very Good. Pt is progressing and meeting goals. Thank you for this referral. Please call [phone] to contact . Padma Coombs M.S., CCC-TAILINGS DAM PUMPER [facility] Certified [facility] Dysph[facility] Certified Physician Signature Date MTDD
[~2018-08-20 13:00] MED LIST changes: +ASCO1TAB26 PO; +B CO1TAB16 PO; +CHOL378P6 PO; +CHOL500051 PO; +OXYC10TA67 PO; +OXYC5TAB38 PO; +SODI100037 PO; +TRAM-420 PO
== END 2018-08-21 ==
LOC: ST 13:00
PROVIDERS: ATTEND Family Medicine
DX: I63.9 Cerebral infarction, unspecified (principal)

== ENCOUNTER 2018-09-28 14:46 | Emergency (ER) | payer MEDICARE, OTHER ==
[~2018-09-28 14:46] MED LIST changes: +TAMS0.4C25 PO; +VENL37.53 PO
--- NOTE | 2018-09-28 14:53 | ER Report ---
History and Physical Time Seen By MD: 14:51 HPI/ROS CHIEF COMPLAINT: Fall HISTORY OF PRESENT ILLNESS: This is an 83-year-old male presented to the emergency room for a fall. Patient states that this past , he fell backwards when he ran into his grandson, he fell onto a concrete surface landing on his elbows and his buttocks. They assisted him up ground. He's had bilateral hip pain since, left greater than the right. He is still ambulatory though this is slowed his ambulation. Denies hitting his head. Denies pain to the elbows, has contusions and some abrasions. No signs of infection. Denies chest pain or shortness of breath. No other complaints. REVIEW OF SYSTEMS: Constitutional: No fever, no chills. Eyes: No discharge. ENT: No sore throat. Cardiovascular: No chest pain, no palpitations. Respiratory: No cough, no shortness of breath. Gastrointestinal: No abdominal pain, no vomiting. Genitourinary: No hematuria. Musculoskeletal: As above. Skin: As above. Neurological: No headache. Allergies: Coded Allergies: codeine (Verified Allergy, Severe, CONSTIPATION, 09/14/17) morphine (Verified Allergy, Mild, Neurologic changes, headache, visual disturbances, 09/14/17) wheat (Verified Allergy, Unknown, Diarrhea, 09/14/17) Uncoded Allergies: SEASONAL ALLERGIES (Allergy, Intermediate, NASAL DRAINAGE, 12/08/11) Home Meds Active Scripts Venlafaxine Hcl (VENLAFAXINE HCL ER) 37.5 Mg Cap.er.24h, 1 CAP PO QDAY for 30 Days, #30 CAP 0 Refills Prov:EFRAIN GARCIA MD 09/23/18 Tamsulosin Hcl (FLOMAX) 0.4 Mg Cap.er.24h, 1 CAP PO QHS for 30 Days, #30 CAP Prov:EFRAIN GARCIA MD 08/27/18 Oxycodone Hcl 10 Mg Tab (OXYCODONE HCL 10 MG TAB) 10 Mg Tablet, 10 MG PO BID for 30 Days, #60 TAB Prov:EFRAIN GARCIA MD 08/12/18 Diclofenac Sodium 1% Gel (VOLTAREN 1% GEL) 100 Gm Gel..gram., 2 GM TOP QID for 30 Days, #1 TUBE 4 Refills Prov:EFRAIN GARCIA MD 08/12/18 Cholestyramine (With Sugar) (CHOLESTYRAMINE POWDER) 378 Gm Powder, 1 GM PO BID PRN for DIARRHEA, #1 BOT 1 Scoop to disolve in liquid as needed for diarrhea Prov:EFRAIN GARCIA MD 05/23/18 Fluticasone Prop 50 Mcg Ns (FLONASE 50 MCG NS) 16 Gm [place].susp, 2 SPRAYS NS QDAY for 30 Days, #1 BOT 4 Refills Prov:EFRAIN GARCIA MD 02/18/18 Clopidogrel Bisulfate (PLAVIX) 75 Mg Tablet, 1 TAB PO QDAY for 90 Days, #90 TAB 4 Refills Prov:EFRAIN GARCIA MD 10/10/17 Atorvastatin Calcium (ATORVASTATIN CALCIUM) 80 Mg Tablet, 1 TAB PO QDAY for 90 Days, #90 TAB 4 Refills Prov:EFRAIN GARCIA MD 10/10/17 Lisinopril (LISINOPRIL) 5 Mg Tablet, 5 MG PO QDAY for 90 Days, #90 TAB 4 Refills Prov:EFRAIN GARCIA MD 10/10/17 Desonide (DESONIDE) 59 Ml Lotion, 1 YELENA TP DAILY PRN for ITCHING for 90 Days, #5 BOT 4 Refills 0.05% Prov:EFRAIN GARCIA MD 03/19/17 Reported Medications Cholecalciferol (Vitamin D3) (Vitamin D) 5,000 Unit Capsule, 1 CAP PO DAILY 06/20/18 B Complex With Vitamin C (SUPER B COMPLEX-VITAMIN C) 1 Each Tablet, 1 TAB PO DAILY 06/20/18 Ascorbate Calcium/Bioflavonoid (MARTHA-C 500 MG TABLET) 1 Each Tablet, 1 TAB PO DAILY 06/20/18 Sodium Chloride (SODIUM CHLORIDE) 1,000 Mg Tablet.demetrius, 1 TAB PO DAILY 06/20/18 Discontinued Scripts Citalopram Hydrobromide (CELEXA) 10 Mg Tablet, 10 MG PO QDAY for 90 Days, #90 TAB 4 Refills Prov:EFRAIN GARCIA MD 01/10/18 Past Medical/Surgical History The patient has a past medical surgical history of CVA 2, cardiac murmur, veins stripped, urinary stenosis, aortic valve replacement, hypercholesterolemia, hypertension, GERD, colonoscopy, diarrhea, TURP, arthritis, knee surgery, hip surgery, right total hip, right shoulder surgery, finger fracture, back pain, wears glasses. Reviewed Nurses Notes: Yes Hx Smoking: No Smoking Status: Never Smoker Exposure to Second Hand Smoke?: No Hx Substance Use Disorder: No Hx Alcohol Use: No Constitutional Vital Sign - Last 24 Hours 09/28/18 09/28/18 09/28/18 09/28/18 14:46 14:51 15:02 15:06 Temp 97.4 Pulse 88 89 92 Resp 16 B/P (MAP) 130/72 130/72 (91) Pulse Ox 90 89 O2 Delivery Room Air 09/28/18 09/28/18 09/28/18 09/28/18 15:26 15:46 16:06 16:26 Pulse 96 89 89 87 Pulse Ox 90 89 91 92 Physical Exam General Appearance: The patient is alert, has no immediate need for airway protection and no signs of toxicity. Eyes: Pupils equal and round no pallor or injection. ENT, Mouth: Mucous membranes are moist. Respiratory: There are no retractions, lungs are clear to auscultation. Cardiovascular: Regular rate and rhythm. Gastrointestinal: Abdomen is soft and non tender, no masses, bowel sounds normal. Neurological: Alert and oriented 4. Moving all extremities. Following all commands. No focal neurodeficits. Skin: Contusions to bilateral elbows and arms. CMS intact. No crepitus. Musculoskeletal: Neck is supple non tender. Bilateral hip discomfort with firm palpation, no crepitus, deformities or bruising identified. Extremities are nontender, nonswollen and have full range of motion. DIFFERENTIAL DIAGNOSIS: After history and physical exam differential diagnosis was considered for fracture, dislocation, contusion. Medical Decision Making EKG/Imaging Imaging PATIENT NAME: Miguel Ángel Beckett : 1935 MR: [id number] V: [id number] EXAM DATE: ORDERING PHYSICIAN: ROMIE GOMEZ TECHNOLOGIST: Location: [facility] Patient: Miguel Ángel Beckett : 1935 Visit/Account:[id number] Date of Sevice: 09/28/2018 HIPS BILATERAL INDICATION: Pain after fall COMPARISON: None available FINDINGS: No evidence of fracture, dislocation, or acute osseous abnormality of the bones of the pelvis. There is a 2 part right hip prosthetic in normal alignment. Moderate degenerative changes are noted on the left characterized predominantly by remodeling of the femoral head. Posterior fusion changes are noted within the visualized lumbar spine. IMPRESSION: 1. No acute osseous abnormality of the pelvis and bilateral hips Report Dictated By: Andrea Jolley at 09/28/2018 4:55 PM Report E-Signed By: Andrea Jolley at 09/28/2018 4:56 PM WSN:[id number] ED Course/Re-evaluation ED Course The patient was admitted to room. A history and physical were obtained. Differential diagnoses were considered. An x-ray of bilateral hips were obtained which was negative for any acute illnesses abnormalities. I did review the results with the patient and his family at the bedside. This is likely a contusion, patient expressed understanding was discharged home. He was also given 1 oxycodone while in the ER, and a take-home pack for 2. He will follow-up with his primary care provider Sunday to refill his oxycodone. Decision to Disposition Date: September 28, 2018 Decision to Disposition Time: 17:20 Depart Departure Latest Vital Signs Vital Signs Date Time Temp Pulse Resp B/P (MAP) Pulse Ox O2 Delivery O2 Flow Rate FiO2 09/28/18 16:26 87 92 09/28/18 15:02 130/72 (91) 09/28/18 14:51 97.4 16 Room Air Impression: Primary Impression: Fall Additional Impression: Contusion, hip Condition: Improved Disposition: HOME OR SELF-CARE Referrals: EFRAIN GARCIA MD (PCP) 5 Days Patient Instructions: Fall Prevention for Older Adults (ED) Additional Instructions: There were no concerning findings on your x-ray today. Please take medications as prescribed. Please consider following up with physical therapy, I did send a prescription home for PT. Please follow-up with Dr. Garcia, next week for reevaluation and a refill on your oxycodone. Drink plenty of water. Get plenty of rest. Return to the ER for any other concerns or worsening symptoms. Problem Qualifiers Primary Impression: Fall Encounter type: initial encounter Qualified Codes: W19.XXXA - Unspecified fall, initial encounter Additional Impression: Contusion, hip Encounter type: initial encounter Laterality: left Qualified Codes: S70.02XA - Contusion of left hip, initial encounter ROMIE GOMEZP-BC September 28, 2018 14:53
[2018-09-28 15:02] VITALS: BP 130/72
--- NOTE | 2018-09-28 17:00 | RADIOLOGY IMAGING REPORT ---
FACILITY: [facility] [place] PATIENT NAME: Miguel Ángel Beckett : 1935 MR: [id number] V: [id number] EXAM DATE: ORDERING PHYSICIAN: ROMIE GOMEZ TECHNOLOGIST: [place] [facility] [place]: Miguel Ángel Beckett : 1935 Visit/Account:[id number] Date of Sevice: 09/28/2018 HIPS BILATERAL INDICATION: Pain after fall COMPARISON: None available FINDINGS: No evidence of fracture, dislocation, or acute osseous abnormality of the bones of the pelvis. There is a 2 part right hip prosthetic in normal alignment. Moderate degenerative changes are noted o n the left characterized predominantly by remodeling of the femoral head. Posterior fusion changes are noted within the visualized lumbar spine. IMPRESSION: 1. No acute osseous abnormality of the pelvis and bilateral hips Report Dictated By: Andrea Jolley at 09/28/2018 4:55 PM Report E-Signed By: Andrea Jolley at 09/28/2018 4:56 PM WSN:[id number]
[2018-09-28] MEDS ORDERED: oxyCODON/ACET (*)5/325MG (CII) 1 TAB TAB PO ONE (17:10)
[2018-09-28] MEDS ORDERED: oxyCODONE/ACETAMIN 5/325MG TH 2 TAB/BOTTLE PO ONE (17:10)
[2018-09-30] MEDS ORDERED: FLUT16SP19 NS (10:48)
[2018-09-30] MEDS ORDERED: OXYC10TA67 PO (13:04)
[2018-09-30] MEDS ORDERED: TAMS0.4C25 PO (13:04)
== END 2018-09-28 17:40 | disposition home or self-care (01) ==
LOC: ER 14:50
DX: S70.02XA Contusion of left hip, initial encounter (principal); W18.30XA Fall on same level, unspecified, initial encounter
CPT/HCPCS: 73522; 99283; A9270

== ENCOUNTER 2018-11-12 13:45 | Outpatient (RCR) | payer MEDICARE, OTHER ==
--- NOTE | 2018-08-29 13:54 | SLP PLAN OF CARE ---
SPEECH THERAPY PROGRESS REPORT Cognitive Communication Assessment Patient Name: Octavio Beckett Date of Report: 08-23-18 Patient : 1935 Clinician: Padma Coombs M.S., CCC-BALANCE WHEEL FACER Treatment Dx: Cognitive-Linguistic deficit BACKGROUND The patient is an 83 year old male experiencing cognitive-linguistic deficits following R MCA CVA w/ restricted diffusion in R anterior temporal lobe and posterior R insula. CVA also w/ white matter involvement along the posterior R frontal, R parietal, extending to the R temporal lobe. Mr. Beckett receives ST 2xwk to address associated cognitive communication deficits reducing independence with IADLs and safety at home and in the community. Mr. Beckett lives with his spouse in [place]. She assists with IADLs as does his daughter including transportation to and from medical appts. CURRENT POC STG 1. The patient will execute multi-level instructions during periods of divided attention for safe participation in IADL tasks during 80% of opportunities w/ min verbal/visual cues. Progressing: Pt following 3 level instructions independently approximately 85% accuracy with mod assist. Pt responds well to clinician assist including multiple repetitions of instruction of the target, visual cuing (point to indicate general location related to target response) along with assist for sequencing steps, remaining organized throughout the tasks, and tracking progress throughout the task. Pt frequently starts a tasks over from the beginning, reviewing and redoing already accurately completed steps multiple times. He typically requires max assist to find his place in the progress once it is lost. Occasionally the patient becomes generally confused and fails to comprehend simple instructions or makes declarative memory errors. On one occasion, the patient struggled to write the numeric equivalent of one hundred ten and responded [place] writing [id number]. Max assist was provided before the patient agreed that his response was in error. 2. The patient will complete higher-level, executive function activities (prospective problem solving, organization, planning) with 90% accuracy independently to support heightened independence with IADL tasks. Progressing: Reasoning and Organization activities are typically addressed using Results for Adults Cognitive Workbook. Pt plans daily activities using information included in a paragraph. Pt receives min or mod assist to successfully complete these tasks. He has increased independence using strategies to track progress (e.g, marking completed items). Simple math for functional daily tasks is performed with mod assist from BALANCE WHEEL FACER. Again, tracking progress through the tasks is difficult for the patient and assist is provided for this as well. The patient frequently repeats prior mistakes without modifying behaviors without caustic strength inspector assist. 3. Pt will locate items R/L of midline for target cancellation tasks/trail- making/editing/sentence reading with min assist and 90% accuracy Progressing: Pt currently identifying objects R/L of midline for participation in functional, information scanning tasks max to mod cues provided for achievement of 90% accuracy. The patient also intermittently struggles to gauge accuracy and monitor speed of completion of task which is directly related to his accuracy. Important details are ignored when rate completion increases and pt frequently does not attend to errors. The patient benefits from cues to summarize information via teach-back, utilize "self-talk" strategy, and to touch information on page while scanning visual field. SUMMARY The patient experiences decreased functional cognitive communication d/t difficulty with deductive reasoning and problem solving, limited awareness of errors and frequently repeating prior mistakes without modifying behaviors. Occasional moments of general confusion occur during which pt fails to comprehend simple instruction and/or recall previously known information (e.g., how to write the numerals for one hundred ten) . Pt benefits from cues to summarize information via teach-back and utilizing "self-talk" strategies. ST services are medically necessary to address areas of deficits and increase independence and safety with functional daily tasks. RECOMMENDATIONS 1. ST 2x/wk 12 2. Continue Current POC PROGNOSIS: Very good. Family support. Past progress Thank you for this referral. Please call [phone] Padma Coombs M.S., CCC-BALANCE WHEEL FACER [employer] Certified [facility] Dysphagia Therapy [facility] Certified Physician Signature Date MTDD
--- NOTE | 2018-09-20 12:27 | SLP PLAN OF CARE ---
SPEECH THERAPY PROGRESS REPORT Cognitive Communication Assessment Patient Name: Octavio Beckett Date of Report: 09-20-18 Patient : 1935 Clinician: Padma Coombs M.S., CCC-BRICK MAKER Treatment Dx: Cognitive-Linguistic deficit BACKGROUND The patient is an 83 year old male experiencing cognitive-linguistic deficits following R MCA CVA w/ restricted diffusion in R anterior temporal lobe and posterior R insula. CVA also w/ white matter involvement along the posterior R frontal, R parietal, extending to the R temporal lobe. Mr. Beckett receives ST 2xwk to address associated cognitive communication deficits reducing independence with IADLs and safety at home and in the community. Mr. Beckett lives with his spouse in [place]. She assists with IADLs as does his daughter including transportation to and from medical appointments. CURRENT POC STG 1. The patient will execute multi-level instructions during periods of divided attention for safe participation in IADL tasks during 80% of opportunities w/ min verbal/visual cues. Progressing: Pt following 2 level instructions approximately 90% accuracy with mid assist. Pt follows 3 level instructions approximately 80% with mod assist. Pt frequently starts a tasks over from the beginning, reviewing and redoing already accurately completed steps multiple times. He typically requires mod to max assist to find his place in the progress once it is lost. Pt responds well to clinician assist including multiple repetitions of instruction of the target, visual cuing (point to indicate general location related to target response) along with assist for sequencing steps, and using strategies to remain organized throughout the tasks and to track progress throughout the task. 2. The patient will complete higher-level, executive function activities (prospective problem solving, organization, planning) with 90% accuracy independently to support heightened independence with IADL tasks. Progressing: Reasoning and Organization activities are typically addressed using Results for Adults Cognitive Workbook and other cognitive workbooks. Pt plans daily activities using information included, answers reasoning questions, and problem solves different scenarios. Pt receives min or mod assist to successfully complete these tasks. He has increased independence using strategies to track progress (e.g, marking completed items), generally needing only min assist as a reminder to track progress. Simple math for functional daily tasks is performed with min to mod assist from BRICK MAKER. Again, remembering to use the strategies to track progress through the tasks is difficult for the patient and assist is provided. 3. Pt will locate items R/L of midline for target cancellation tasks/trail- making/editing/sentence reading with min assist and 90% accuracy Progressing: Pt currently identifying objects R/L of midline for participation in functional, information scanning tasks min cues provided for achievement of 85% accuracy. The patient also intermittently struggles to gauge accuracy and monitor speed of completion of task which is directly related to his accuracy but this occurs less frequently than seen in previous reporting periods. When asked to scan a page, the patient generally scans one half of the page very well, and then skims the other half of the page which affects his accuracy. The patient benefits from cues to summarize information, utilize "self-talk" strategy, and to touch information on page while scanning visual field, but often does this independently when performing these tasks. SUMMARY The patient experiences decreased functional cognitive communication d/t difficulty with deductive reasoning and problem solving, limited awareness of errors and frequently repeating prior mistakes without modifying behaviors. Occasional moments of general confusion occur during which patient recall previously known information. Pt benefits from cues to summarize information and utilizing "self-talk" strategies. ST services are medically necessary to address areas of deficits and increase independence and safety with functional daily tasks. RECOMMENDATIONS 1. ST 2x/wk 12 2. Continue Current POC PROGNOSIS: Very good. Family support. Past progress Thank you for this referral. Please call [phone] Padma Coombs M.S., CCC-BRICK MAKER [employer] Certified [facility] Dysphagia Therapy [facility] Certified Physician Signature Date MTDD
--- NOTE | 2018-10-09 09:40 | PT INITIAL EVALUATION ---
MEDICAL DIAGNOSIS: fall, hip pain TREATMENT DIAGNOSIS: same, decreased balance, strength, and altered gait mechanics DATE OF ONSET: 05/14/18 SUBJECTIVE: Octavio Beckett presents to physical therapy with complaints of decreased balance, strength, and altered gait mechanics that has been getting a little worse with time. He also reports that he had a fall that resulted in R hip/thigh pain that has gotten better but continues to be painful with going up and down stairs. He denies any resting pain. He also reports that he would like to take bigger steps and improve his balance so he can prevent future falls. Pain location is R mid thigh pain. Pain scale is 0 on a ten point pain scale. REHAB PROBLEM LIST: Increased Pain Decreased ROM Decreased Strength Decreased Endurance Decreased Balance Decreased Function Decreased ADL's Decreased Mobility Decreased Gait PREVIOUS MEDICAL HISTORY: See EMR OCCUPATION: Retired OBJECTIVE: Posture: He demonstrates moderate forward head, moderate increased thoracic kyphosis, B rounded shoulders, decreased lumbar lordosis, and flexed posture ROM: B LE's within functional limits; however, he is restricted with cervical, thoracic, and lumbar extension Strength: R hip flexion, abduction, extension: 4/5. L hip flexion, abduction, extension: 4+/5. B hip adduction: 5/5. B knee flexion and extension and B ankle PF and DF: 4/5. Palpation: TTP: mid thigh over rectus Special Tests: 6 minute walk test: 812 feet. (+) for rectus femoris tendinopathy = + with palpation, + with stretch, and + with contraction Mobility: Independent Gait: Without AD, he demonstrated the following gait mechanics: flexed/stooped posture, decreased B foot clearance, decreased B step length, increased base of support, decreased pelvic rotation, decreased velocity, and increased stance time. Balance: 4 stage balance: able to maintain 30 seconds with minimal sway with decreased base of support, normal base of support, and with eyes open on compliant or firm surface. Unable to maintain 30 seconds with moderate to severe sway with decreased base of support, tandem stance, and normal base of support with complaint surface or firm surface and eyes closed. ASSESSMENT: Octavio will benefit from skilled physical therapy addressing the listed impairments to improve function and QOL. Short Term Goals 6 weeks: Pt will demonstrate significant improvements in his core and B LE strength from baseline to 4+/5 to improve function and QOL. 8 weeks: Pt will demonstrate significant improvements in balance strategies in all conditions and be able to maintain for 30 seconds or greater to improve function and QOL. 8 weeks: Pt will demonstrate improvements in endurance from baseline to 1000 feet to improve function and QOL. 8 weeks: Pt will demonstrated increased B step lengths, increased velocity, and return to prior level of function with gait to improve function and QOL. Patient's Goals to improve strength, gait, and balance PLAN: Patient to be seen for Manual Therapy/STM/MET Strengthening/condition Ice/Heat Range of Motion Spinal Stabilization Work Hardening/Cond Stretching Iontophoresis Neuromuscular Re-ed Closed Chain Program Electrical Stim Posture/Body mechanics Gait Trg/Balance Trg Home Exercise Program Therapeutic Activities 2x/Week for 2 Months If you have any questions, comments, or concerns about this report or plan, please contact me at . Thank you, Deuce Diana, PT, DPT MTDD
[~2018-11-12 13:45] MED LIST changes: -SAW1CAPS3 PO; +SAW1CAPS8 PO
--- NOTE | 2018-11-13 10:47 | SLP PLAN OF CARE ---
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 CVA also impacted white matter along the posterior R frontal and R parietal lobes, extending into the R temporal lobe. Mr. Beckett lives with his spouse in [place]. She assists with IADLs (as does his daughter) including transportation to and from medical appointments. Mr. Beckett receives ST 2xwk to address associated cognitive communication deficits reducing independence with IADLs and safety at home and in the community. CURRENT POC STG 1. The patient will execute multi-level instructions during periods of divided attention for safe participation in IADL tasks during 80% of opportunities w/ min verbal/visual cues. Progressing: Pt follows multi-level instructions with approximately 85% accuracy when provided mod assist. Pt frequently starts a task over from the beginning, reviewing and redoing already accurately completed steps multiple times. He typically requires mod to max assist for task progression and organization. Pt responds well to multiple repetitions of task instructions, simplified and concrete language, direct visual cuing, and use of progress monitoring strategies. 2. The patient will complete higher-level, executive function activities (prospective problem solving, organization, planning) with 90% accuracy independently to support heightened independence with IADL tasks. Progressing: Pt completes executive function activities (e.g., planning daily events, completing verbal reasoning tasks, problem solving hypothetical scenarios) with approximately 83% accuracy. Pt receives min or mod assist to successfully complete these tasks. He demonstrates heightened independence with progress monitoring strategies (e.g, marking completed items) with positive impact on prospective thinking, reasoning, and planning skills. Pt often has difficulty with mental flexibility, needing mod to max assist to consider multiple outcomes when presented with verbal reasoning or problem solving scenarios. Pattern of rigid thinking continues to evolve. 3. Pt will locate items R/L of midline for target cancellation tasks/trail- making/editing/sentence reading with min assist and 90% accuracy Progressing: Pt currently identifies objects R/L of midline for participation in functional, information scanning tasks with 88% accuracy given min to mod assist. When asked to visually scan a page, the patient generally scans the R half of his visual field very well, but then skims the L half with reduced attention to detail. The patient intermittently struggles to monitor speed of task completion with direct, negative impact on performance accuracy. Self- monitoring skills continue to improve, however, with reduced frequency of errors in comparison to previous reporting periods. The patient benefits from cues to summarize directions, utilize "self-talk" strategy, and to touch information on page while scanning visual field. He also often implements visual scanning strategies independently. SUMMARY The patient continues to experience decreased functional cognitive communication skills with deficits in deductive reasoning, problem solving skills, limited awareness of errors, and difficulty modifying behaviors. Mr. Beckett continues to demonstrate progress, with positive response to use of summarization, "self- talk" strategies, and progress monitoring techniques. These strategies successfully improve Mr. Evans attention to detail, planning and sequencing skills, mental flexibility, and overall performance accuracy during participation in complex activities of daily living. ST services are medically necessary to address areas of deficits and increase independence and safety with functional daily tasks. Plan to continue STGs as outlined above. RECOMMENDATIONS 1. ST 2x/wk 12 2. Continue Current POC. PROGNOSIS: Very good. Patient has good family support and has demonstrated consistent progress since start of care. Thank you for this referral. Please call [phone] Shasha Mullen M.S., CCC-SENIOR DATA ANALYST Gaby Mcleod, Machinist Job Setter Clinician Physician Signature Date [*] MTDD
== END 2018-11-21 ==
LOC: PT 13:45
PROVIDERS: ATTEND Family Medicine
DX: I63.9 Cerebral infarction, unspecified (principal); M25.551 Pain in right hip; M62.81 Muscle weakness (generalized); R26.89 Other abnormalities of gait and mobility
CPT/HCPCS: 97162